=== PATIENT | female | born 1995 | race Two or more races ===

== ENCOUNTER 2016-08-10 12:26 | Emergency (ER) | payer OTHER ==
[2016-08-10 12:31] VITALS: PULSE 80; TEMP 98; BMI 39.8
--- NOTE | 2016-08-10 13:31 | PDOC ---
History of Present Illness - General Chief Complaint: Vaginal Bleeding Stated Complaint: DISCHARGE (8 WEEKS) Time Seen by Provider: 08/10/16 13:01 History Source: Patient Exam Limitations: No Limitations - History of Present Illness Travel History: No Initial Comments: 08/10/16 13:28 21-year-old female presents to the ED with complaints of spotting pinkish white discharge upon wiping after urinating this morning. Patient denies continual vaginal discharge, lower abdominal cramping but does state lower back pain since yesterday without rectal pressure. Patient states is currently 8 weeks and had a miscarriage in March 2015 at 7 weeks gestation. Patient is followed by Dr. guadalupe and is scheduled for her first ultrasound next week. Timing/Duration: reports: resolved prior to arrival Pain Radiation: reports: back Aggravating Factors: improves with: Voiding Alleviating Factors: improves with: None Past History - Travel Traveled outside of the country in the last 30 days: No Close contact w/someone who was outside of country & ill: No - Past Medical History Allergies/Adverse Reactions: Allergies Allergy/AdvReac Type Severity Reaction Status Date / Time Penicillins Allergy Intermediate Rash Verified 08/10/16 12:31 Home Medications: Ambulatory Orders Albuterol Sulfate Inhaler - [Ventolin Hfa Inhaler -] 1 - 2 inh PO QID 10/21/15 Tramadol HCl [Ultram] 50 mg PO BID PRN #10 tablet MDD 2 10/21/15 Cyclobenzaprine HCl [Flexeril -] 10 mg PO TID PRN #21 tablet 10/28/15 Naproxen [Naprosyn -] 500 mg PO BID PRN #10 tablet 10/28/15 Anemia: No Asthma: Yes Suicide Attempt (Hx): No - Reproductive History (#): 1 Para: 0 Cervical CA: No Dysfunctional Uterine Bleeding: No Ectopic : No Endometrial CA: No Polycystic Ovaries: No Therapeutic (s) & number: No Tubal Ligation: No Spontaneous : 0 - Immunization History Immunization Up to Date: Yes - Psycho/Social/Smoking Cessation Hx Anxiety: No Suicidal Ideation: No Smoking Status: No Smoking History: Never smoked Have you smoked in the past 12 months: No Number of Cigarettes Smoked Daily: 0 Cigars Per Day: 0 Hx Alcohol Use: No Drug/Substance Use Hx: No Substance Use Type: None Patient Lives Alone: No Lives with/in: parents Abd/GI Specific PMHX - Complaint Specific PMHX GERD: Yes Review of Systems - Review of Systems Able to Perform ROS?: No Is the patient limited Lao proficient: No Constitutional: No: Symptoms Reported HEENTM: No: Symptoms Reported Respiratory: No: Symptoms reported Cardiac (ROS): No: Symptoms Reported : Yes: Discharge (vaginal spotting) Musculoskeletal: Yes: Back Pain (low bilateral) Integumentary: No: Symptoms Reported Neurological: No: Symptoms reported *Physical Exam - Vital Signs Last Vital Signs Temp Pulse Resp BP Pulse Ox 98.0 F 80 18 116/62 99 08/10/16 12:28 08/10/16 12:28 08/10/16 12:28 08/10/16 12:28 08/10/16 12:28 - Physical Exam General Appearance: Yes: Nourished, Appropriately Dressed. No: Apparent Distress HEENT: negative: Pale Conjunctivae Neck: positive: Normal Thyroid Respiratory/Chest: positive: Lungs Clear, Normal Breath Sounds. negative: Respiratory Distress, Accessory Muscle Use Cardiovascular: positive: Regular Rhythm, Regular Rate. negative: Murmur Female Pelvic Exam: positive: normal external exam, cervical os closed, normal adnexa. negative: CMT, vaginal bleeding (creamy white discharge) Gastrointestinal/Abdominal: positive: Soft. negative: Tenderness Musculoskeletal: negative: CVA Tenderness Extremity: negative: Pedal Edema Integumentary: positive: Normal Color, Warm, Moist Neurologic: positive: Motor Strength 5/5 (ambulatory) ED Treatment Course - LABORATORY CBC & Chemistry Diagram: 08/10/16 13:40 08/10/16 13:40 - RADIOLOGY Radiology Studies Ordered: Category Date Time Status <14WKS US [US] Stat Ultrasound 08/10/16 13:12 Ordered Medical Decision Making - Medical Decision Making 08/10/16 13:41 08/10/16 13:44 Patient complains of episodic vaginal spotting this morning after urinating. Patient denies abdominal pain and states decided come to the ER since she miscarried in March 2015 . Patient only complaint is low back pain which he describes an aching sensation since yesterday. Patient on exam had closed cervical os with no vaginal bleeding. Patient ordered for labs including type and screen, urinalysis, beta count CBC, comp and ultrasound. 06/21/17 15:18 Laboratory Tests 08/10/16 08/10/16 08/10/16 13:40 13:40 13:50 WBC 9.8 Hgb 13.8 Hct 39.9 Plt Count 262 Neutrophils % 70.1 Sodium 139 Potassium 4.3 Chloride 103 Carbon Dioxide 29 Anion Gap 7 L Creatinine 0.5 L Random Glucose 87 Calcium 9.2 AST 9 L ALT 18 Beta HCG, Quant 1669.2 Urine Protein Trace H Urine Blood 2+ H Ur Epithelial Cells 30 08/10/16 15:36 Patient's ultrasound shows a gestational sac with no pole measuring 5 weeks 1 day. There is no pole is in a fight. There for the viability of this gestation is uncertain. Otherwise he has no evidence of adnexal masses or free fluid collections. Patient can follow up with Dr. Hyde as scheduled next week. *DC/Admit/Observation/Transfer Diagnosis at time of Disposition: Threatened in first trimester - Discharge Dispostion Disposition: HOME Condition at time of disposition: Good - Referrals Referrals: Sanchez Irizarry [Primary Care Provider] - Oscar Hyde MD [Staff Physician] - - Patient Instructions Printed Discharge Instructions: DI for Threatened Additional Instructions: Please follow up with Dr. Hyde on Monday for Ultrasound and return to ED if symptoms worsen.
[2016-08-10 13:58] LABS: BASOPHIL 0.4 % (0-2.0); MCH 30.9 pg (25.7-33.7); MCHC 34.6 g/dl (32.0-36.0); MEAN CELL VOLUME 89.4 fl (80-96); MEAN PLT VOLUME 8.5 fl (7.5-11.1); NEUTROPHILS 70.1 % (42.8-82.8); PLATELET COUNT 262 K/MM3 (134-434); WHITE BLOOD COUNT 9.8 K/mm3 (4.0-10.0)
[2016-08-10 14:15] LABS: PH,URINE >= 9.0 (5.0-8.0); URINE APPEARANCE SL CLOUDY; URINE BILIRUBIN NEGATIVE (NEGATIVE); URINE COLOR YELLOW; URINE GLUCOSE (UA) NEGATIVE (NEGATIVE); URINE KETONE NEGATIVE (NEGATIVE); URINE LEUK ESTERASE NEGATIVE (NEGATIVE); URINE NITRITE NEGATIVE (NEGATIVE); URINE PROTEIN TRACE (NEGATIVE); URINE UROBILINOGEN 1.0 E.U/dl E.U./dl (0.2-1.0)
[2016-08-10 14:21] LABS: ALBUMIN 3.9 g/dl (3.4-5.0); ANION GAP 7 (8-16); CALCIUM 9.2 mg/dL (8.5-10.1); CO2 29 mmol/L (21-32); GLUCOSE,RANDOM 87 mg/dL (74-106); SGOT/AST 9 U/L (15-37); SGPT/ALT 18 U/L (12-78)
[2016-08-10 14:24] LABS: URINE BLOOD 2+ (NEGATIVE)
[2016-08-10 14:39] LABS: ALK PHOS 85 U/L (45-117); BILIRUBIN,TOTAL 0.5 mg/dL (0.2-1.0); CREATININE 0.5 mg/dL (0.55-1.02); TOT PROT 7.2 g/dl (6.4-8.2)
[2016-08-10 14:52] LABS: URINE WBC 4 /hpf (3-5)
--- NOTE | 2016-08-10 15:40 | PDOC ---
*Physical Exam - Vital Signs Last Vital Signs Temp Pulse Resp BP Pulse Ox 98.0 F 80 18 116/62 99 08/10/16 12:28 08/10/16 12:28 08/10/16 12:28 08/10/16 12:28 08/10/16 12:28 - Physical Exam General Appearance: Yes: Nourished, Appropriately Dressed Neck: positive: Trachea midline Respiratory/Chest: positive: Lungs Clear, Normal Breath Sounds Cardiovascular: positive: Regular Rhythm, Regular Rate, S1, S2. negative: Edema , JVD Musculoskeletal: positive: Normal Inspection. negative: CVA Tenderness Extremity: positive: Normal Capillary Refill, Normal Inspection Integumentary: positive: Normal Color, Dry, Warm ED Treatment Course - LABORATORY CBC & Chemistry Diagram: 08/10/16 13:40 08/10/16 13:40 - ADDITIONAL ORDERS Additional order review: Laboratory Results 08/10/16 08/10/16 08/10/16 13:50 13:50 13:40 Sodium 139 Potassium 4.3 Chloride 103 Carbon Dioxide 29 Anion Gap 7 L BUN 9 D Creatinine 0.5 L Creat Clearance w eGFR > 60 Random Glucose 87 Calcium 9.2 Total Bilirubin 0.5 D AST 9 L ALT 18 Alkaline Phosphatase 85 Total Protein 7.2 Albumin 3.9 Beta HCG, Quant 1669.2 Urine Color Yellow Urine Appearance Sl cloudy Urine pH >= 9.0 H D Urine Protein Trace H Urine Glucose (UA) Negative Urine Ketones Negative Urine Blood 2+ H Urine Nitrite Negative Urine Bilirubin Negative Urine Urobilinogen 1.0 e.u/dl Ur Leukocyte Esterase Negative Urine WBC 4 Ur Epithelial Cells 30 Amorphous Phosphates Many Blood Type A POSITIVE Antibody Screen Negative 08/10/16 13:40 RBC 4.47 MCV 89.4 MCHC 34.6 RDW 13.0 MPV 8.5 Neutrophils % 70.1 Lymphocytes % 22.2 Monocytes % 6.3 Eosinophils % 1.0 Basophils % 0.4 - RADIOLOGY Radiology Studies Ordered: 08/10/16 15:40 tvus with yolk sac, gestational sac, no pole. Medical Decision Making - Medical Decision Making 08/10/16 15:38 21 yo F with currently 8 weeks here wtih c/o vaginal spotting. mild abd cramping. no mod factors. no f/c no urinary complaints. on exam awake alert lungs clear no wheeze no crackle. heart RRR no mr/g. pelvic exam per pravin Ortega plan; differential r/o ectopic vs. incmplete vs. threatneed ab. pt seen and examined. agree with plan and assessment by Pravin Ortega. followup outpt ob. *DC/Admit/Observation/Transfer Diagnosis at time of Disposition: Threatened in first trimester - Referrals Referrals: Oscar Hyde MD [Staff Physician] - Sanchez Irizarry [Primary Care Provider] - - Patient Instructions Printed Discharge Instructions: DI for Threatened Additional Instructions: Please follow up with Dr. Hyde on Monday for Ultrasound and return to ED if symptoms worsen.
[2016-08-10 15:41] VITALS: BP 117/72
== END 2016-08-10 15:40 | disposition home or self-care (01) ==
LOC: JER 12:26
DX: O20.0 Threatened abortion (principal); Z3A.01 Less than 8 weeks gestation of pregnancy
CPT/HCPCS: 36415; 76801-TC; 80053; 81003; 81015; 84702; 85025; 86850; 86900; 86901; 87086; 99283-25

== ENCOUNTER 2016-08-11 17:36 | Emergency (ER) | payer OTHER ==
[2016-08-11 17:52] VITALS: BMI 39.8
--- NOTE | 2016-08-11 20:32 | PDOC ---
History of Present Illness - History of Present Illness Initial Comments: 08/12/16 00:13 Patient is a 21 year old female (5 weeks) with significant medical hx of asthma who is returning to the ED with lower back pain, pelvic pain and vaginal bleeding for two days. Patient was seen in the ED yesterday for pink discharge and lower back pain. She received an US which demonstrated gestational sac with no pole measuring 5 weeks 1 day; US also reported gestational viability was uncertain at the time. Patient returned today because she developed heavier vaginal bleeding, with passing clots, and new onset of pelvic pain. Patient has had a miscarriage in the past in March 2015 and she returns today with concern of miscarriage. Patient also notes shes been vomiting for the past month with her . Patient has been compliant with vitamins. OR ASSISTANT: Oscar Hyde MD G2/M1 <Sherrie Monique - Last Filed: 08/12/16 01:05> <Anup Nelson - Last Filed: 08/15/16 07:50> - General Chief Complaint: Vaginal Bleeding Stated Complaint: VAGINAL BLEEDING Time Seen by Provider: 08/11/16 18:21 Past History <Sherrie Monique - Last Filed: 08/12/16 01:05> - Past Medical History Anemia: No Asthma: Yes Suicide Attempt (Hx): No - Reproductive History Is Patient Now?: Yes (#): 2 Para: 0 Cervical CA: No Dysfunctional Uterine Bleeding: No Ectopic : No Endometrial CA: No Polycystic Ovaries: No Therapeutic (s) & number: No Tubal Ligation: No Spontaneous : 1 - Immunization History Immunization Up to Date: Yes - Psycho/Social/Smoking Cessation Hx Anxiety: No Suicidal Ideation: No Smoking Status: No Smoking History: Never smoked Have you smoked in the past 12 months: No Number of Cigarettes Smoked Daily: 0 Cigars Per Day: 0 Information on smoking cessation initiated: No Hx Alcohol Use: No Drug/Substance Use Hx: No Substance Use Type: None <Anup Nelson - Last Filed: 08/15/16 07:50> - Past Medical History Allergies/Adverse Reactions: Allergies Allergy/AdvReac Type Severity Reaction Status Date / Time Penicillins Allergy Intermediate Rash Verified 08/11/16 17:48 Home Medications: Ambulatory Orders Albuterol Sulfate Inhaler - [Ventolin Hfa Inhaler -] 1 - 2 inh PO QID 10/21/15 Tramadol HCl [Ultram] 50 mg PO BID PRN #10 tablet MDD 2 10/21/15 Cyclobenzaprine HCl [Flexeril -] 10 mg PO TID PRN #21 tablet 10/28/15 Naproxen [Naprosyn -] 500 mg PO BID PRN #10 tablet 10/28/15 Abd/GI Specific PMHX - Complaint Specific PMHX GERD: Yes <Anup Nelson - Last Filed: 08/15/16 07:50> Review of Systems - Review of Systems Comments:: 08/12/16 00:14 CONSTITUTIONAL: No reported: Fever, Chills, Diaphoresis, Generalized Weakness, Malaise, Loss of Appetite HEENT: No reported: Rhinorrhea, Nasal Congestion, Throat Pain, Throat Swelling, Difficulty Swallowing, Mouth Swelling, Ear Pain, Eye Pain, Visual Changes CARDIOVASCULAR: No reported: Chest Pain, Syncope, Palpitations, Irregular Heart Rate, Lightheadedness, Peripheral Edema RESPIRATORY: No reported: Cough, Shortness of Breath, SOB with Exertion, Orthopnea, Wheezing , Stridor, Hemoptysis GASTROINTESTINAL: Present: Pelvic Pain No reported: Abdominal Distension, Nausea, Vomiting, Diarrhea, Constipation, Melena, Hematochezia GENITOURINARY: Present: Vaginal Bleeding No reported: Dysuria, Frequency, Urgency, Hesitancy, Flank Pain, Genital Pain MUSCULOSKELETAL: Present: Lower Back Pain No reported: Myalgia, Arthralgia, Joint Swelling, Neck Pain SKIN: No reported: Rash, Itching, Pallor HEMEATOLOGIC/IMMUNOLOGIC: No reported: Easy Bleeding, Easy Bruising, Lymphadenopathy, Frequent infections ENDOCRINE: No reported: Unexplained Weight Gain, Unexplained Weight Loss, Heat Intolerance , Cold Intolerance NEUROLOGIC: No reported: Headache, Focal Weakness, Paresthesias, Vertigo, Lightheadedness, Unsteady Gait, Seizure, Mental Status Changes, Incontinence PSYCHIATRIC: No reported: Anxiety, Depression <Sherrie Monique - Last Filed: 08/12/16 01:05> *Physical Exam - Vital Signs Last Vital Signs Temp Pulse Resp BP Pulse Ox 98.7 F 66 20 118/79 100 08/11/16 17:49 08/11/16 17:49 08/11/16 17:49 08/11/16 17:49 08/11/16 17:49 - Physical Exam Comments: 08/12/16 00:14 GENERAL: The patient is awake, alert, and fully oriented, Nontoxic - in no acute distress. HEAD: Normocephalic, atraumatic. EYES: extraocular movements intact, sclera anicteric, conjunctiva clear. ENT: Normal voice, Moist mucous membranes. NECK: Normal range of motion, supple LUNGS: Breath sounds equal, clear to auscultation bilaterally. No wheezes, no rhonchi, no rales. HEART: Regular rate and rhythm, normal S1 and S2 without murmur, rub or gallop. ABDOMEN: Soft, mild suprapubic tenderness normoactive bowel sounds. No guarding , no rebound. No CVA tenderness, Pinion Staker: blood in vag vault and several clots/tissue extracted from cervix EXTREMITIES: Normal range of motion, no edema. No clubbing or cyanosis. No cords, erythema, or tenderness. NEUROLOGICAL: No facial assymetry, Normal speech, PSYCH: Normal mood, normal affect. SKIN: Warm, Dry, normal turgor <Sherrie Monique - Last Filed: 08/12/16 01:05> - Vital Signs Last Vital Signs Temp Pulse Resp BP Pulse Ox 98.7 F 66 20 118/79 100 08/11/16 17:49 08/11/16 17:49 08/11/16 17:49 08/11/16 17:49 08/11/16 17:49 <Anup Nelson - Last Filed: 08/15/16 07:50> ED Treatment Course - LABORATORY CBC & Chemistry Diagram: 08/12/16 00:35 - ADDITIONAL ORDERS Additional order review: Laboratory Results 08/11/16 18:18 Beta HCG, Quant 1914.4 - RADIOLOGY Radiograph Interpretation: 08/12/16 01:05 Transvaginal US Impression: Findings consistent with an incomplete . Reported By: Chip Bower MD <Sherrie Monique - Last Filed: 08/12/16 01:05> - LABORATORY CBC & Chemistry Diagram: 08/12/16 00:35 - ADDITIONAL ORDERS Additional order review: Laboratory Results 08/11/16 18:18 Beta HCG, Quant 1914.4 <Anup Nelson - Last Filed: 08/15/16 07:50> Medical Decision Making - Medical Decision Making 08/11/16 20:44 21y F presenting with complaint of worsening vag bleeding and suprapubic pain radiating to back. on exam pt passed a large clot/tissue mass from her cervix. ?completed ab. beta trending higher. will obtain pelvic US A portion of this note was documented by scribe services under my direction. I have reviewed the details of the note, within reason, and agree with the documentation with the following case summary and management plan written by me 08/11/16 23:41 US c/w incomplete AB with gestational sac in cervic case d/w dr. Basurto requetsed 20u pitocin in 1000cc of LR at 200cc/hr untli she passes 08/12/16 01:41 pt comfortable on pit gtt pt signed out to dr. Gupta to fu with pt and dispo the pt will continue monitoring the pt pt still having mild bleeding and passing some clots <Anup Nelson - Last Filed: 08/15/16 07:50> *DC/Admit/Observation/Transfer - Attestations Scribe Attestion: 08/12/16 00:15 Documentation prepared by Sherrie Monique, acting as medical detail representative for Anup Nelson MD. <Sherrie Monique - Last Filed: 08/12/16 01:05> <Anup Nelson - Last Filed: 08/15/16 07:50> Diagnosis at time of Disposition: Inevitable - Discharge Dispostion Disposition: HOME Condition at time of disposition: Stable - Referrals Referrals: Oscar Hyde MD [Staff Physician] - Sanchez Irizarry [Primary Care Provider] - - Patient Instructions Printed Discharge Instructions: DI for Miscarriage Additional Instructions: Ms. Antony Thank you for coming in to the ER today Please monitor yourself for heavy vaginal bleeding If you are saturating 2 pads/hour x 2 hours, chest pain, weakness, shortness of breath please return to the ER to see us Please follow up with Dr. Hyde on Tuesday 08/15
[2016-08-11] MEDS ORDERED: morphine CARPU-JECT 2 MG/1 ML DISP.SYRIN IVPUSH ONE (23:41)
[2016-08-11] MEDS ORDERED: OXYTOCIN IV SCH (23:45)
[2016-08-11] MEDS ORDERED: LACTATED RINGERS IV SCH (23:45)
[2016-08-12] MEDS ORDERED: morphine CARPU-JECT 2 MG/1 ML DISP.SYRIN ONE (00:06)
[2016-08-12] MEDS ORDERED: OXYTOCIN 10 UNITS/ML VIAL ONE (00:07)
[2016-08-12 00:41] LABS: BASOPHIL 0.2 % (0-2.0); EOSINOPHIL 0.7 % (0-4.5); MCHC 33.6 g/dl (32.0-36.0); MEAN CELL VOLUME 89.2 fl (80-96); MEAN PLT VOLUME 8.7 fl (7.5-11.1); NEUTROPHILS 73.9 % (42.8-82.8); PLATELET COUNT 260 K/MM3 (134-434); RDW 12.9 % (11.6-15.6); WHITE BLOOD COUNT 13.6 K/mm3 (4.0-10.0)
--- NOTE | 2016-08-12 10:12 | PDOC ---
*Physical Exam - Vital Signs Last Vital Signs Temp Pulse Resp BP Pulse Ox 98.7 F 76 16 107/64 98 08/11/16 17:49 08/12/16 07:54 08/12/16 07:54 08/12/16 07:54 08/12/16 07:54 ED Treatment Course - LABORATORY CBC & Chemistry Diagram: 08/12/16 00:35 - ADDITIONAL ORDERS Additional order review: Laboratory Results 08/12/16 00:35 WBC 13.6 H D RBC 4.44 Hgb 13.3 Hct 39.6 MCV 89.2 MCHC 33.6 RDW 12.9 Plt Count 260 MPV 8.7 Neutrophils % 73.9 Lymphocytes % 19.4 Monocytes % 5.8 Eosinophils % 0.7 Basophils % 0.2 08/12/16 00:35 RBC 4.44 MCV 89.2 MCHC 33.6 RDW 12.9 MPV 8.7 Neutrophils % 73.9 Lymphocytes % 19.4 Monocytes % 5.8 Eosinophils % 0.7 Basophils % 0.2 - Medications Given in the ED: ED Medications Discontinued Medications Generic Name Dose Route Start Last Admin Trade Name Elena PRN Reason Stop Dose Admin Morphine Sulfate 2 mg 08/11/16 23:41 08/12/16 00:35 Morphine Injection - IVPUSH 08/11/16 23:42 2 mg ONCE ONE Administration Medical Decision Making - Medical Decision Making 08/12/16 10:06 I received this patient on sign out from Dr. Salgado This is a 21 yo F who presents to the ER with a complaint of vaginal bleeding Initial US: gestational Sac at endocervical canal given pitocin overnight Pt sent to US 08/12/16 10:06 Laboratory Tests 08/10/16 08/11/16 13:40 18:18 Beta HCG, Quant 1669.2 1914.4 U/S gestational sac at the lower uterine segment and in the upper endocervical merary Case reviewed with Dr. Hyde He states pt can either have D&C or attempt to pass it on her own Pt has decided to go home She will follow up on Tuesday 08/15 Clinical impression: Inevitable ab *DC/Admit/Observation/Transfer Diagnosis at time of Disposition: Inevitable - Discharge Dispostion Disposition: HOME Condition at time of disposition: Stable Admit: No - Referrals Referrals: Sanchez Irizarry [Primary Care Provider] - Oscar Hyde MD [Staff Physician] - - Patient Instructions Printed Discharge Instructions: DI for Miscarriage Additional Instructions: Deann Cassia Thank you for coming in to the ER today Please monitor yourself for heavy vaginal bleeding If you are saturating 2 pads/hour x 2 hours, chest pain, weakness, shortness of breath please return to the ER to see us Please follow up with Dr. Hyde on Tuesday 08/15 - Post Discharge Activity
[2016-08-12 10:33] VITALS: BP 110/70; PULSE 70; TEMP 98.5
--- NOTE | 2016-08-15 14:22 | PATH ---
Surgical Pathology Report Patient Name: USAMA ANDERSON [facility]. Rec. #: [id number] /Age/Gender: 1995 (Age: 21) / F Account: [id number] Location: EMERGENCY ROOM Taken: 08/11/2016 Received: 08/12/2016 Reported: 08/15/2016 Physicians: Rony Arguello M.D. Specimen(s) Received A: PRODUCTS OF CONCEPTION B: PRODUCTS OF CONCEPTION Clinical History at approximately 5 weeks, vaginal bleeding ? Blood clot versus products of conception Spontaneous Final Diagnosis A AND B. UTERINE CONTENTS, EVACUATION: CLOTTED BLOOD WITH RARE TROPHOBLAST CONSISTENT WITH PRODUCTS OF CONCEPTION. BENIGN ENDOMETRIAL TISSUE AND SQUAMOUS EPITHELIUM PRESENT. Comment: Recommend correlation with clinical and radiologic findings and follow up as clinically indicated. Electronically Signed Otis Leo M.D. Gross Description A. Received in formalin, labeled with the patient's name and indicated on the requisition to be products of conception, is a 9.0 x 5.5 x 0.7 cm aggregate of red-brown blood clot. No definite villous tissue or somatic tissue is identified. Engine Turner sections are submitted in 3 cassettes. B. Received in formalin, labeled with the patient's name and indicated on the requisition to be products of conception, is a 10.5 x 10.0 x 1.4 cm aggregate of red-brown blood clot. No definite villous tissue or somatic tissue is identified. Engine Turner sections are submitted in 3 cassettes. /08/12/201608/12/2016
== END 2016-08-12 10:33 | disposition home or self-care (01) ==
LOC: JER 17:36
PROC: 3E033GC Introduction of Other Therapeutic Substance into Peripheral Vein, Percutaneous Approach (ICD-10-PCS; principal; 2016-08-11)
PROC: 3E033NZ Introduction of Analgesics, Hypnotics, Sedatives into Peripheral Vein, Percutaneous Approach (ICD-10-PCS; 2016-08-11)
DX: O26.891 Other specified pregnancy related conditions, first trimester (principal); Z3A.01 Less than 8 weeks gestation of pregnancy; O03.9 Complete or unspecified spontaneous abortion without complication; J45.909 Unspecified asthma, uncomplicated
CPT/HCPCS: 36415; 76817-TC; 84702; 85025; 88305-TC; 99282-25

== ENCOUNTER 2016-10-09 13:07 | Emergency (ER) | payer OTHER ==
[2016-10-09 13:14] VITALS: BP 105/55; PULSE 70; TEMP 98.2; BMI 38.9
--- NOTE | 2016-10-09 14:09 | PDOC ---
History of Present Illness - General Chief Complaint: Vaginal Sxs Stated Complaint: VAGINAL PAIN Time Seen by Provider: 10/09/16 13:49 History Source: Patient Exam Limitations: No Limitations - History of Present Illness Travel History: No Initial Comments: 10/09/16 14:09 21-year-old female presents to the ED with complaints of vaginal discharge and vaginal itching since last night. Patient states is also 16 weeks but has no urinary complaints abdominal pain, fever, vaginal bleeding, or dysphonia. Patient states is followed by Dr. Hyde and has her ultrasound next week. Timing/Duration: reports: constant Aggravating Factors: worse with: None Alleviating Factors: worse with: None Past History - Travel Traveled outside of the country in the last 30 days: No Close contact w/someone who was outside of country & ill: No - Past Medical History Allergies/Adverse Reactions: Allergies Allergy/AdvReac Type Severity Reaction Status Date / Time Penicillins Allergy Intermediate Rash Verified 10/09/16 13:10 Home Medications: Ambulatory Orders NK [No Known Home Medication] 10/09/16 Anemia: No Asthma: Yes Suicide Attempt (Hx): No - Reproductive History (#): 1 Para: 0 Cervical CA: No Dysfunctional Uterine Bleeding: No Ectopic : No Endometrial CA: No Polycystic Ovaries: No Therapeutic (s) & number: No Tubal Ligation: No Spontaneous : 0 - Immunization History Immunization Up to Date: Yes - Psycho/Social/Smoking Cessation Hx Anxiety: No Suicidal Ideation: No Smoking Status: No Smoking History: Never smoked Have you smoked in the past 12 months: No Number of Cigarettes Smoked Daily: 0 Cigars Per Day: 0 Information on smoking cessation initiated: No Hx Alcohol Use: No Drug/Substance Use Hx: Yes (chika) Substance Use Type: Marijuana Patient Lives Alone: No Lives with/in: parents Abd/GI Specific PMHX - Complaint Specific PMHX GERD: Yes Review of Systems - Review of Systems Able to Perform ROS?: Yes Constitutional: No: Symptoms Reported HEENTM: No: Symptoms Reported ABD/GI: No: Symptoms Reported : Yes: Discharge Musculoskeletal: No: Symptoms Reported Integumentary: Yes: Pruritus (labia) Neurological: No: Symptoms reported Endocrine: No: Symptoms Reported Hematologic/Lymphatic: No: Symptoms Reported *Physical Exam - Vital Signs Last Vital Signs Temp Pulse Resp BP Pulse Ox 98.2 F 70 18 105/55 100 10/09/16 13:11 10/09/16 13:11 10/09/16 13:11 10/09/16 13:11 10/09/16 13:11 - Physical Exam General Appearance: Yes: Nourished, Appropriately Dressed. No: Apparent Distress Female Pelvic Exam: positive: normal external exam, cervical os closed, discharge (white nonodorous curd-like discharge in vault and around os.). negative: CMT, vaginal bleeding Gastrointestinal/Abdominal: positive: Soft. negative: Tenderness Musculoskeletal: negative: CVA Tenderness Extremity: positive: Normal Capillary Refill Integumentary: positive: Normal Color, Warm, Moist Neurologic: positive: Motor Strength 5/5 (ambulatory) Medical Decision Making - Medical Decision Making 10/09/16 14:15 Patient currently 16 weeks complaining of vaginal discharge and itching. Patient on exam with noted shaina. Patient also ordered for urinalysis , urine culture, and gonorrhea chlamydia. 10/09/16 14:27 Laboratory Tests 10/09/16 14:01 Urine Ketones Negative Urine Nitrite Negative Ur Leukocyte Esterase 3+ H Urine WBC 15 Patient will be discharged home with Keflex and Monistat. *DC/Admit/Observation/Transfer Diagnosis at time of Disposition: Shaina vaginitis Urinary tract infection Qualifiers: Hematuria presence: with hematuria - Discharge Dispostion Disposition: HOME Condition at time of disposition: Good - Referrals Referrals: Sanchez Irizarry [Primary Care Provider] - - Patient Instructions Printed Discharge Instructions: DI for Urinary Tract Infection (UTI), DI for Vaginal Yeast Infection Additional Instructions: Please take medication as prescribed. Drink plenty of fluids and please clean from front to back. Please follow up with Dr. Hyde as scheduled and let him know of today's visit. - Post Discharge Activity
[2016-10-09 14:11] LABS: URINE APPEARANCE SLCLOUDY; URINE BILIRUBIN NEGATIVE (NEGATIVE); URINE BLOOD NEGATIVE (NEGATIVE); URINE COLOR YELLOW; URINE GLUCOSE (UA) NEGATIVE (NEGATIVE); URINE KETONE NEGATIVE (NEGATIVE); URINE NITRITE NEGATIVE (NEGATIVE); URINE PROTEIN NEGATIVE (NEGATIVE); URINE UROBILINOGEN NEGATIVE mg/dL (0.2-1.0)
[2016-10-09 14:15] LABS: URINE LEUK ESTERASE 3+ (NEGATIVE)
[2016-10-09 14:16] LABS: URINE BACTERIA RARE /hpf (NONE SEEN); URINE MUCUS RARE; URINE RBC 13 /hpf (0-3); URINE WBC 15 /hpf (3-5)
== END 2016-10-09 14:36 | disposition home or self-care (01) ==
LOC: JERFT 13:07
DX: O98.812 Other maternal infectious and parasitic diseases complicating pregnancy, second trimester (principal); B37.3 Candidiasis of vulva and vagina; Z3A.16 16 weeks gestation of pregnancy
CPT/HCPCS: 36415; 81003; 81015; 87086; 87491; 87591; 99281-25

== ENCOUNTER 2016-10-17 11:12 | Emergency (ER) | payer OTHER ==
[2016-10-17 11:16] VITALS: TEMP 97.9; BMI 39.4
--- NOTE | 2016-10-17 11:31 | PDOC ---
History of Present Illness - General Chief Complaint: Pain, Acute Stated Complaint: VAGINAL PAIN Time Seen by Provider: 10/17/16 11:31 - History of Present Illness Initial Comments: 10/17/16 12:28 Ms. Antony is a 21 year old female with a significant past medical history of 2 spontaneous abortions and recent visit for vaginal candidiasis who presents to the emergency department with a 2 day history of suprapubic pain she says feels similar to her previous pain with . She also reports pain to her R flank. She presented last week with UTI symptoms for which she was proscribed keflex but stopped taking it after 2 days per her PCP when culture grew out negative. Says she thinks she is 6-8 weeks . The patient denies chest pain, shortness of breath, headache and dizziness. Denies fever, chills, nausea, vomit, diarrhea and constipation. Denies dysuria, frequency, urgency and hematuria. Allergies: Penicillins Past surgical history: None Social history: Occasional marijuana use OBGYN: Rachel Past History - Past Medical History Allergies/Adverse Reactions: Allergies Allergy/AdvReac Type Severity Reaction Status Date / Time Penicillins Allergy Intermediate Rash Verified 10/17/16 11:16 Home Medications: Ambulatory Orders Albuterol Sulfate Inhaler - [Ventolin Hfa Inhaler -] 1 - 2 inh PO QID 10/17/16 Anemia: No Asthma: Yes Suicide Attempt (Hx): No - Reproductive History (#): 1 Para: 0 Cervical CA: No Dysfunctional Uterine Bleeding: No Ectopic : No Endometrial CA: No Polycystic Ovaries: No Therapeutic (s) & number: No Tubal Ligation: No Spontaneous : 0 - Immunization History Immunization Up to Date: Yes - Psycho/Social/Smoking Cessation Hx Anxiety: No Suicidal Ideation: No Smoking Status: No Smoking History: Never smoked Have you smoked in the past 12 months: No Number of Cigarettes Smoked Daily: 0 Cigars Per Day: 0 Information on smoking cessation initiated: No Hx Alcohol Use: No Drug/Substance Use Hx: Yes (chika) Substance Use Type: Marijuana Review of Systems - Review of Systems Comments:: 10/17/16 12:28 GENERAL/CONSTITUTIONAL: No fever or chills. No weakness. HEAD, EYES, EARS, NOSE AND THROAT: No change in vision. No ear pain or discharge. No sore throat. CARDIOVASCULAR: No chest pain or shortness of breath RESPIRATORY: No cough, wheezing, or hemoptysis. GASTROINTESTINAL: No nausea, vomiting, diarrhea or constipation. GENITOURINARY: +some R flank pain as well as suprapubic pain for 2 days. No dysuria, frequency, or change in urination. MUSCULOSKELETAL: No joint or muscle swelling or pain. No neck or back pain. SKIN: No rash NEUROLOGIC: No headache, vertigo, loss of consciousness, or change in strength/ sensation. ENDOCRINE: No increased thirst. No abnormal weight change HEMATOLOGIC/LYMPHATIC: No anemia, easy bleeding, or history of blood clots. ALLERGIC/IMMUNOLOGIC: No hives or skin allergy. *Physical Exam - Vital Signs Last Vital Signs Temp Pulse Resp BP Pulse Ox 97.9 F 89 18 130/55 100 10/17/16 11:13 10/17/16 11:13 10/17/16 11:13 10/17/16 11:13 10/17/16 11:13 - Physical Exam Comments: 10/17/16 12:28 GENERAL: Awake, alert, and fully oriented, in no acute distress HEAD: No signs of trauma, normocephalic, atraumatic EYES: PERRLA, EOMI, sclera anicteric, conjunctiva clear ENT: Auricles normal inspection, hearing grossly normal, nares patent, oropharynx clear without exudates. Moist mucosa NECK: Normal ROM, supple, no lymphadenopathy, JVD, or masses LUNGS: No distress, speaks full sentences, clear to auscultation bilaterally HEART: Regular rate and rhythm, normal S1 and S2, no murmurs, rubs or gallops, peripheral pulses normal and equal bilaterally. ABDOMEN: +Lower abdomen tender bilaterally. Soft, normoactive bowel sounds. No guarding, no rebound. No masses EXTREMITIES: Normal inspection, Normal range of motion, no edema. No clubbing or cyanosis. NEUROLOGICAL: Cranial nerves II through XII grossly intact. Normal speech, normal gait, no focal sensorimotor deficits SKIN: Warm, Dry, normal turgor, no rashes or lesions noted. ED Treatment Course - LABORATORY CBC & Chemistry Diagram: 10/17/16 12:24 10/17/16 12:24 Medical Decision Making - Medical Decision Making 10/17/16 15:39 Patient worked up for pelvic pain with reported 6-8 weeks. Beta HCG found to be 543, on reporting level to patient patient reported that it has increased since her value of 83 on Monday. At this point patient remembered that she is only 2 weeks . Transvaginal ultrasound positive for gestational sac-like mass. *DC/Admit/Observation/Transfer Diagnosis at time of Disposition: Abdominal pain Qualifiers: Abdominal location: lower abdomen, unspecified Qualified Code(s): R10.30 - Lower abdominal pain, unspecified - Discharge Dispostion Disposition: HOME - Referrals Referrals: Oscar Hyde MD [Staff Physician] - - Patient Instructions Printed Discharge Instructions: DI for Abdominal Pain -- Early Additional Instructions: You must follow up with your OB within 2-3 days to have your HCG levels rechecked. We cannot definitely confirm that you do not have an ectopic unless you follow up with your OB. If you have an ectopic and fail to have it treated, you may suffer severe pain, infertility, illness, or even . - Attestations Physician Attestion: 10/17/16 12:27 I, Dr. Min Yanez, attest that this document has been prepared under my direction and personally reviewed by me in its entirety. I further attest, that it accurately reflects all work, treatment, procedures and medical decision -making performed by me.
[2016-10-17 12:43] LABS: BASOPHIL 0.7 % (0-2.0); EOSINOPHIL 0.9 % (0-4.5); MCH 30.7 pg (25.7-33.7); MCHC 34.5 g/dl (32.0-36.0); MEAN PLT VOLUME 8.2 fl (7.5-11.1); NEUTROPHILS 68.2 % (42.8-82.8); PLATELET COUNT 289 K/MM3 (134-434); RDW 13.1 % (11.6-15.6); WHITE BLOOD COUNT 9.1 K/mm3 (4.0-10.0)
[2016-10-17 12:45] LABS: URINE APPEARANCE SLCLOUDY; URINE BILIRUBIN NEGATIVE (NEGATIVE); URINE BLOOD NEGATIVE (NEGATIVE); URINE COLOR LTYELLOW; URINE GLUCOSE (UA) NEGATIVE (NEGATIVE); URINE KETONE NEGATIVE (NEGATIVE); URINE NITRITE NEGATIVE (NEGATIVE); URINE PROTEIN NEGATIVE (NEGATIVE); URINE UROBILINOGEN NEGATIVE mg/dL (0.2-1.0)
[2016-10-17 12:59] LABS: URINE LEUK ESTERASE 1+ (NEGATIVE)
[2016-10-17 13:00] LABS: URINE RBC <1 /hpf (0-3); URINE WBC 3 /hpf (3-5)
[2016-10-17 13:01] LABS: URINE MUCUS RARE
[2016-10-17 13:09] LABS: ALBUMIN 3.7 g/dl (3.4-5.0); ANION GAP 7 (8-16); BILIRUBIN,TOTAL 0.4 mg/dL (0.2-1.0); CALCIUM 8.7 mg/dL (8.5-10.1); CO2 27 mmol/L (21-32); CREATININE 0.7 mg/dL (0.55-1.02); GLUCOSE,RANDOM 86 mg/dL (74-106); SGOT/AST 9 U/L (15-37); SGPT/ALT 22 U/L (12-78); TOT PROT 7.2 g/dl (6.4-8.2)
[2016-10-17 13:10] LABS: ALK PHOS 78 U/L (45-117)
--- NOTE | 2016-10-17 13:16 | PDOC ---
Attending Attestation - Resident Resident Name: Min Yanez - ED Attending Attestation I have performed the following: I have examined & evaluated the patient, The case was reviewed & discussed with the resident, I agree w/resident's findings & plan, Exceptions are as noted - HPI HPI: 10/17/16 13:12 21 F @ 7-8 weeks gestation presenting to ER with suprapubic pain. Pt denies F/C. Denies dysuria but does report occasional R flank pain. Denies vaginal discharge or bleeding. Pt states that the pain began yesterday, is constant, nonradiating. Feels similar to the pain she had with her prior miscarriages. - Physicial Exam PE: 10/17/16 13:17 "GENERAL: Awake, alert, and fully oriented, in no acute distress HEAD: No signs of trauma EYES: PERRLA, EOMI, sclera anicteric, conjunctiva clear ENT: Auricles normal inspection, hearing grossly normal, nares patent, oropharynx clear without exudates. Moist mucosa NECK: Normal ROM, supple, no lymphadenopathy, JVD, or masses LUNGS: Breath sounds equal, clear to auscultation bilaterally. No wheezes, and no crackles HEART: Regular rate and rhythm, normal S1 and S2, no murmurs, rubs or gallops ABDOMEN: Mild suprapubic TTP, Soft, normoactive bowel sounds. No guarding, no rebound. No masses, no CVAT EXTREMITIES: Normal range of motion, no edema. No clubbing or cyanosis. No cords, erythema, or tenderness NEUROLOGICAL: Cranial nerves II through XII grossly intact. Normal speech, normal gait SKIN: Warm, Dry, normal turgor, no rashes or lesions noted. " - Medical Decision Making 10/17/16 13:18 21 F @ 7-8 weeks gestation presenting with suprapubic pain. Will r/o ectopic with TVUS. Also consider UTI or spontaneous Ab. - Labs, beta quant - UA - TVUS 10/17/16 15:38 Upon further discussion with pt, pt reveals that she is actually closer to 2 or 3 weeks gestation. Pt states that her serum HCG was 80 last Monday. HCG 500s today, increasing appropriately. TVUS with small yolk sac. Pt to f/u with OB within 2 days. Discharge Disposition - Discharge Dispostion Last Admission D/C Date: 94 - Referrals Referrals: Sanchez Irizarry [Primary Care Provider] - - Patient Instructions Additional Instructions: You must follow up with your OB within 2-3 days to have your HCG levels rechecked. We cannot definitely confirm that you do not have an ectopic unless you follow up with your OB. If you have an ectopic and fail to have it treated, you may suffer severe pain, infertility, illness, or even . - Post Discharge Activity
[2016-10-17 16:15] VITALS: BP 140/75; PULSE 72
== END 2016-10-17 16:16 | disposition home or self-care (01) ==
LOC: JER 11:12
DX: O26.891 Other specified pregnancy related conditions, first trimester (principal); R10.30 Lower abdominal pain, unspecified; Z3A.01 Less than 8 weeks gestation of pregnancy
CPT/HCPCS: 36415; 76817-TC; 80053; 81003; 81015; 84702; 85025; 87077; 87086; 99285-25

== ENCOUNTER 2016-12-15 22:28 | Emergency (ER) | payer OTHER ==
[2016-12-15 22:45] VITALS: BP 107/75; PULSE 98; TEMP 98.4; BMI 39.4
--- NOTE | 2016-12-15 23:51 | PDOC ---
History of Present Illness - General History Source: Patient Exam Limitations: No Limitations - History of Present Illness Initial Comments: 12/16/16 00:17 The patient is a 21 year old female who is 13 weeks with a significant PMH of 2 spontaneous abortions who presents to the emergency department with approximately 2 days of nasal congestion, nausea, and vomiting. The patient reports associated cramping with her nausea. She also endorses a subjective fever but is afebrile upon presentation. The patient denies any vaginal bleeding or discharge. The patient denies chest pain, shortness of breath, headache and dizziness. Denies chills, diarrhea and constipation. Denies dysuria, frequency, urgency and hematuria. Allergies: Penicillins. Past surgical history: None reported. Social history: Marijuana use. No reported alcohol or cigarette use. PCP: Dr. Irizarry DRAFTER ELECTRONIC: Dr. Hyde <Michael Kessler - Last Filed: 12/16/16 01:52> - General History Source: Patient <Tristen Salgado - Last Filed: 12/16/16 02:19> - General Chief Complaint: Nausea/Vomiting Stated Complaint: NAUSEA/VOMITING/13 WKS Time Seen by Provider: 12/15/16 23:49 Past History <Michael Kessler - Last Filed: 12/16/16 01:52> - Past Medical History Anemia: No Asthma: Yes - Reproductive History (#): 1 Para: 0 Cervical CA: No Dysfunctional Uterine Bleeding: No Ectopic : No Endometrial CA: No Polycystic Ovaries: No Therapeutic (s) & number: No Tubal Ligation: No Spontaneous : 0 - Immunization History Immunization Up to Date: Yes - Suicide/Smoking/Psychosocial Hx Smoking Status: No Smoking History: Never smoked Have you smoked in the past 12 months: No Number of Cigarettes Smoked Daily: 0 Cigars Per Day: 0 Information on smoking cessation initiated: No Hx Alcohol Use: No Drug/Substance Use Hx: No Substance Use Type: Marijuana <Tristen Salgado - Last Filed: 12/16/16 02:19> - Past Medical History Allergies/Adverse Reactions: Allergies Allergy/AdvReac Type Severity Reaction Status Date / Time Penicillins Allergy Intermediate Rash Verified 10/17/16 11:16 Home Medications: Ambulatory Orders Metoclopramide HCl [Reglan] 10 mg PO TID #30 tablet 12/16/16 Nitrofurantoin Monohyd/M-Cryst [Macrobid] 100 mg PO BID #14 capsule 12/16/16 Review of Systems - Review of Systems Able to Perform ROS?: Yes Comments:: 12/16/16 00:17 CONSTITUTIONAL: Absent: fever, chills, diaphoresis, generalized weakness, malaise, loss of appetite HEENT: (+) Nasal congestion Absent: rhinorrhea, throat pain, throat swelling, difficulty swallowing, mouth swelling, ear pain, eye pain, visual Changes CARDIOVASCULAR: Absent: chest pain, syncope, palpitations, irregular heart rate, lightheadedness , peripheral edema RESPIRATORY: Absent: cough, shortness of breath, dyspnea with exertion, orthopnea, wheezing, stridor, hemoptysis GASTROINTESTINAL: (+) Nausea. (+) Vomiting. Absent: abdominal pain, abdominal distension, diarrhea, constipation, melena, hematochezia GENITOURINARY: Absent: dysuria, frequency, urgency, hesitancy, hematuria, flank pain, genital pain MUSCULOSKELETAL: Absent: myalgia, arthralgia, joint swelling SKIN: Absent: rash, itching, pallor HEMATOLOGIC/IMMUNOLOGIC: Absent: easy bleeding, easy bruising, lymphadenopathy, frequent infections ENDOCRINE: Absent: unexplained weight gain, unexplained weight loss, heat intolerance, cold intolerance NEUROLOGIC: Absent: headache, focal weakness or paresthesias, dizziness, unsteady gait, seizure, mental status changes, bladder or bowel incontinence PSYCHIATRIC: Absent: anxiety, depression, suicidal or homicidal ideation, hallucinations. <Michael Kessler - Last Filed: 12/16/16 01:52> *Physical Exam - Vital Signs Last Vital Signs Temp Pulse Resp BP Pulse Ox 98.4 F 98 H 19 107/75 99 12/15/16 22:43 12/15/16 22:43 12/15/16 22:43 12/15/16 22:43 12/15/16 22:43 - Physical Exam Comments: 12/16/16 00:17 GENERAL: Well developed, well nourished. Awake and alert. No acute distress. HEENT: (+) Nasal congestion. Normocephalic, atraumatic. PERRLA, EOMI. No conjunctival pallor. Sclera are non- icteric. Moist mucous membranes. Oropharynx is clear. NECK: Supple. Full ROM. No JVD. Carotid pulses 2+ and symmetric, without bruits. No thyromegaly. No lymphadenopathy. CARDIOVASCULAR: Regular rate and rhythm. No murmurs, rubs, or gallops. Distal pulses are 2+ and symmetric. PULMONARY: No evidence of respiratory distress. Lungs clear to auscultation bilaterally. No wheezing, rales or rhonchi. ABDOMINAL:(+) Obese. Soft. Non-tender. Non-distended. No rebound or guarding. No organomegaly. Normoactive bowel sounds. MUSCULOSKELETAL Normal range of motion at all joints. No bony deformities or tenderness. No CVA tenderness. EXTREMITIES: No cyanosis. No clubbing. No edema. No calf tenderness. SKIN: Warm and dry. Normal capillary refill. No rashes. No jaundice. NEUROLOGICAL: Alert, awake, appropriate. Cranial nerves 2-12 intact. No deficits to light touch and temperature in face, upper extremities and lower extremities. No motor deficits in the in face, upper extremities and lower extremities. Normoreflexic in the upper and lower extremities. Normal speech. Toes are downgoing bilaterally. Gait is normal without ataxia. PSYCHIATRIC: Cooperative. Good eye contact. Appropriate mood and affect. <Michael Kessler - Last Filed: 12/16/16 01:52> - Vital Signs Last Vital Signs Temp Pulse Resp BP Pulse Ox 98.4 F 98 H 19 107/75 99 12/15/16 22:43 12/15/16 22:43 12/15/16 22:43 12/15/16 22:43 12/15/16 22:43 <Tristen Salgado - Last Filed: 12/16/16 02:19> ED Treatment Course - LABORATORY CBC & Chemistry Diagram: 12/16/16 00:18 12/16/16 00:18 <Michael Kessler - Last Filed: 12/16/16 01:52> - LABORATORY CBC & Chemistry Diagram: 12/16/16 00:18 12/16/16 00:18 <Tristen Salgado - Last Filed: 12/16/16 02:19> Medical Decision Making - Medical Decision Making 12/16/16 02:17 Dr. Salgado: The scribe's documentation has been prepared under my direction and personally reviewed by me in its entirery. I confirm that the note above accurately reflects all work, treatment, procedures, and medical decision making performed by dc. <Tristen Salgado - Last Filed: 12/16/16 02:19> *DC/Admit/Observation/Transfer - Attestations Scribe Attestion: 12/16/16 00:17 Documentation prepared by Michael Kessler, acting as medical social worker for Tristen Salgado DO. <Michael Kessler - Last Filed: 12/16/16 01:52> - Discharge Dispostion Admit: No <Tristen Salgado - Last Filed: 12/16/16 02:19> Diagnosis at time of Disposition: Hyperemesis gravidarum URI (upper respiratory infection) Qualifiers: URI type: unspecified URI Qualified Code(s): J06.9 - Acute upper respiratory infection, unspecified - Discharge Dispostion Disposition: HOME Condition at time of disposition: Improved - Prescriptions Prescriptions: Nitrofurantoin Monohyd/M-Cryst [Macrobid] 100 mg PO BID #14 capsule Metoclopramide HCl [Reglan] 10 mg PO TID #30 tablet - Referrals Referrals: Sanchez Irizarry [Primary Care Provider] - Oscar Hyde MD [Staff Physician] - - Patient Instructions Printed Discharge Instructions: DI for Hyperemesis Gravidarum, DI for Viral Upper Respiratory Infection -- Adult
[2016-12-15] MEDS ORDERED: SODIUM CHLORIDE 1,000 ML IV STA (23:53)
[2016-12-15] MEDS ORDERED: METOCLOPRAMIDE HCL INJECTION 10 MG/2 ML VIAL IVPUSH ONE (23:53)
[2016-12-16] MEDS ORDERED: METOCLOPRAMIDE HCL INJECTION 10 MG/2 ML VIAL ONE (00:20)
[2016-12-16 00:22] LABS: BASOPHIL 0.7 % (0-2.0); EOSINOPHIL 0.6 % (0-4.5); MCH 30.1 pg (25.7-33.7); MEAN CELL VOLUME 86.1 fl (80-96); MEAN PLT VOLUME 8.5 fl (7.5-11.1); NEUTROPHILS 84.3 % (42.8-82.8); PLATELET COUNT 226 K/MM3 (134-434); WHITE BLOOD COUNT 11.6 K/mm3 (4.0-10.0)
[2016-12-16 00:47] LABS: ALBUMIN 3.4 g/dl (3.4-5.0); ANION GAP 12 (8-16); BILIRUBIN,TOTAL 0.3 mg/dL (0.2-1.0); CALCIUM 8.6 mg/dL (8.5-10.1); CO2 25 mmol/L (21-32); CREATININE 0.4 mg/dL (0.55-1.02); GLUCOSE,RANDOM 94 mg/dL (74-106); SGOT/AST 21 U/L (15-37); SGPT/ALT 41 U/L (12-78)
[2016-12-16 01:02] LABS: ALK PHOS 75 U/L (45-117)
[2016-12-16 02:10] LABS: URINE APPEARANCE SLCLOUDY; URINE BILIRUBIN NEGATIVE (NEGATIVE); URINE BLOOD NEGATIVE (NEGATIVE); URINE COLOR YELLOW; URINE GLUCOSE (UA) NEGATIVE (NEGATIVE); URINE KETONE 2+ (NEGATIVE); URINE NITRITE NEGATIVE (NEGATIVE); URINE PROTEIN NEGATIVE (NEGATIVE); URINE UROBILINOGEN NEGATIVE mg/dL (0.2-1.0)
[2016-12-16] MEDS ORDERED: NITROFURANTOIN MACROCRYSTAL 50 MG CAPSULE (FP) PO SCH (02:15)
[2016-12-16] MEDS ORDERED: METOCLOPRAMIDE HCL 10 MG TABLET (FP) PO ONE ×2 (02:16→02:21)
[2016-12-16] MEDS ORDERED: NITROFURANTOIN MACROCRYSTAL 50 MG CAPSULE (FP) ONE (02:21)
[2016-12-16 09:56] LABS: URINE LEUK ESTERASE Negative (NEGATIVE)
== END 2016-12-16 02:29 | disposition home or self-care (01) ==
LOC: JER 22:28
PROC: 3E033GC Introduction of Other Therapeutic Substance into Peripheral Vein, Percutaneous Approach (ICD-10-PCS; principal; 2016-12-15)
DX: O26.891 Other specified pregnancy related conditions, first trimester (principal); O21.0 Mild hyperemesis gravidarum; O99.53 Diseases of the respiratory system complicating the puerperium; J06.9 Acute upper respiratory infection, unspecified; Z3A.13 13 weeks gestation of pregnancy
CPT/HCPCS: 36415; 76801-TC; 80053; 81003; 84702; 84703; 85025; 87086; 87186; 87804; 99282-25

== ENCOUNTER 2017-02-19 10:50 | Inpatient (IN) | payer OTHER ==
[2017-02-19 11:49] LABS: BASO % 0.4 % (0-2.0); EOS % 0.6 % (0-4.5); HEMATOCRIT 34.1 % (32.4-45.2); HEMOGLOBIN 11.3 GM/dL (10.7-15.3); LYMPH % 12.3 % (8-40); MCH 29.1 pg (25.7-33.7); MCHC 33.1 g/dl (32.0-36.0); MEAN CELL VOLUME 87.9 fl (80-96); MEAN PLT VOLUME 8.4 fl (7.5-11.1); MONO % 4.5 % (3.8-10.2); NEUT % 82.2 % (42.8-82.8); PLATELET COUNT 226 K/MM3 (134-434); RBC 3.87 M/mm3 (3.60-5.2); RDW 13.1 % (11.6-15.6); WHITE BLOOD COUNT 15.1 K/mm3 (4.0-10.0)
[2017-02-19 11:50] LABS: INR 1.03 (0.82-1.09); PROTHROMBIN TIME (PATIENT) 11.6 SEC (9.98-11.88)
[2017-02-19 11:53] LABS: ACTIVATED PTT 25.4 SECONDS (26.9-34.4)
[2017-02-19 11:59] LABS: ALBUMIN 2.8 g/dl (3.4-5.0); ALK PHOS 88 U/L (45-117); ANION GAP 11 (8-16); BILIRUBIN,TOTAL 0.2 mg/dL (0.2-1.0); BLOOD UREA NITROGEN 6 mg/dL (7-18); CALCIUM 8.6 mg/dL (8.5-10.1); CHLORIDE 105 mmol/L (98-107); CO2 23 mmol/L (21-32); CREATININE 0.4 mg/dL (0.55-1.02); GLUCOSE,RANDOM 78 mg/dL (74-106); POTASSIUM 3.5 mmol/L (3.5-5.1); SGOT/AST 19 U/L (15-37); SGPT/ALT 34 U/L (12-78); SODIUM 139 mmol/L (136-145); TOT PROT 6.4 g/dl (6.4-8.2)
[2017-02-19 12:19] LABS: URINE APPEARANCE SLCLOUDY; URINE BILIRUBIN NEGATIVE (NEGATIVE); URINE BLOOD 2+ (NEGATIVE); URINE COLOR YELLOW; URINE GLUCOSE (UA) NEGATIVE (NEGATIVE); URINE KETONE NEGATIVE (NEGATIVE); URINE NITRITE NEGATIVE (NEGATIVE); URINE PROTEIN NEGATIVE (NEGATIVE); URINE UROBILINOGEN NEGATIVE mg/dL (0.2-1.0)
[2017-02-19 12:22] LABS: URINE LEUK ESTERASE 3+ (NEGATIVE)
[2017-02-19 12:27] LABS: COCAINE, UR NEGATIVE ng/ml (CUTOFF=300); OPIATES, URI NEGATIVE ng/ml (CUTOFF=300); PHENCYCLIDINE,URINE NEGATIVE ng/ml (CUTOFF=25); URINE AMPHETAMINES NEGATIVE ng/ml (CUTOFF=500); URINE BARBITURATES NEGATIVE ng/ml (CUTOFF=200); URINE BENZODIAZEPINES NEGATIVE ng/ml (CUTOFF=200)
[2017-02-19 12:28] LABS: METHADONE, UR NEGATIVE ng/ml (CUTOFF=300)
[2017-02-19 12:47] LABS: EPI CELLS RARE /HPF (FEW)
[2017-02-19 16:09] VITALS: TEMP 98.4
--- NOTE | 2017-02-19 16:21 | HP ---
Past Medical History - Primary Care Physician PCP:: Nikhil Arshad - Admission Chief Complaint: 22yo P3 Goo2o with prgnancy at EGA 22w 0/7d admitted with c/o vaginal spotting and found to have a short cervix with dilated cervical os. History of Present Illness: The pt presented yesterday with c/o spotting after intercourse. She was seen on L&D and the spotting had stopped but refused to wait for ultrasound. The pt went home and later called the Answering Service with c/o increased bleeding. The pt was sent back to L&D. On evaluation she was found to have a cervical length of 0.6cm and external cervical os open to 1-2cm. No contractions, no bleeding. 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: No: Alzheimer's, CVA, Dementia, Migraine, Multiple Sclerosis, Peripheral Neuropathy, Parkinson's, Seizure, Syncope, TIA, Vertigo, Other Cardiovascular: No: AFIB, Aneurysm, Aortic Insufficiency, Aortic Stenosis, CAD, CHF, Deep Vein Thrombosis, HTN, Hyperlipdemia, [place], Mitral Insufficiency, Mitral Stenosis, Murmur, Pulmonary Hypertension, Other Pulmonary: Yes: Asthma Gastrointestinal: No: Ascites, Cancer, Constipation, Crohn's Disease, Diverticulitis, Diverticulosis, Esophageal Varices, Gastritis, GERD, GI Bleed, Hemorrhoids, Hiatal Hernia, Inflamatory Bowel Disease, Irritable Bowel Disease, Pancreatitis, Peptic Ulcer Disease, Ulcerative Colitis, Other Hepatobiliary: No: Cirrhosis, Cholelithiasis, Cholecystitis, Choledocholithiasis , Hepatitis A, Hepatitis B, Hepatitis C, Other Renal/: No: Renal Failure, Renal Inusuff, BPH, Cancer, Hematuria, Hemodialysis , Neurogenic Bladder, Renal Calculi, UTI, Other Reproductive: No: Ectopic , Endometriosis, Fibroids, PID, Polycystic Ovary Syndrome, Postmenopausal, Other ...: 3 ...Para: 0 ...Term: 0 ...: 0 ...Spon : 2 ...Induced : 0 ...LMP: 09/10/16 ... Weeks Gestation by Dates: 22.0 ...EDC by Dates: 06/17/17 ...EDC by Sono: 06/25/17 Additional OB History: SAB x 2 Heme/Onc: No: Anemia, B12 Deficiency, Bleeding Disorder, Cancer, Current Chemotherapy, Current Radiation Therapy, Hemochromatosis, Hypercoaguable State, Myeloproliferative Synd, Sickle Cell Disease, Sickle Cell Trait, Thrombocytopenia, Other Infectious Disease: No: AIDS, C-Diff, Herpes Zoster, HIV, MRSA, STD's, Tuberculosis, VREF, Other Psych: No: Addictions, Anxiety, Bipolar, Depression, Panic, Psychosis, Schizophrenia, Other Musculoskeletal: No: Bursitis, Chronic low back pain, Hemiparesis, Hemiplegia, Osteoarthritis, Paraplegia, Other Rheumatology: No: Fibromyalgia, Gout, Lupus, Rheumatoid Arthritis, Sarcoidosis, Vasculitis, Other ENT: No: Allergic Rhinitis, Sinusitis, Other Endocrine: No: Mckenzie's Disease, Winthrop's Disease, Diabetes Insipidus, Diabetes Mellitus, Hyperparathyroidism, Hyperthyroidism, Hypothyroidism, Osteopenia, SIADH, Other Dermatology: No: Basal Cell, Cellulitis, Eczema, Melanoma, Psoriasis, Squamous Cell, Other Additional Medical History: Obesity - Past Surgical History Past Surgical History: Yes: None Hx Myomectomy: No Hx Transabdominal Cerclage: No - Smoking History Smoking history: Current every day smoker Have you smoked in the past 12 months: No Aproximately how many cigarettes per day: 0 - Alcohol/Substance Use Hx Alcohol Use: No History of Substance Use: reports: Marijuana - Social History Usual Living Arrangement: Yes: With Significant Other ADL: Independent Occupation: GED student History of Recent Travel: No Home Medications - Allergies Allergies/Adverse Reactions: Allergies Allergy/AdvReac Type Severity Reaction Status Date / Time Penicillins Allergy Intermediate Difficulty Verified 02/19/17 11:01 Breathing - Home Medications Home Medications: Ambulatory Orders Vit No.130/Iron/Folic [ Vitamins] 1 each PO DAILY 02/19/17 Family Disease History - Family Disease History Family History: Unremarkable Review of Systems - Review of Systems Constitutional: reports: No Symptoms Eyes: reports: No Symptoms HENT: reports: No Symptoms Neck: reports: No Symptoms Cardiovascular: reports: No Symptoms Respiratory: reports: No Symptoms Gastrointestinal: reports: No Symptoms Genitourinary: reports: Vaginal Bleeding (Resolved) Breasts: reports: No Symptoms Reported Musculoskeletal: reports: No Symptoms Integumentary: reports: No Symptoms Neurological: reports: No Symptoms Endocrine: reports: No Symptoms Hematology/Lymphatic: reports: No Symptoms Psychiatric: reports: No Symptoms Pain Intensity: 0 Physical Exam - Maternity Vital Signs: Vital Signs Temperature 97.9 F 02/19/17 11:52 Pulse Rate 80 02/19/17 11:52 Respiratory Rate 18 02/19/17 11:52 Blood Pressure 116/62 02/19/17 11:52 O2 Sat by Pulse Oximetry (%) Constitutional: Yes: Well Nourished, No Distress, Calm, Obese Eyes: Yes: WNL, Conjunctiva Clear, EOM Intact HENT: Yes: WNL, Atraumatic, Normocephalic Neck: Yes: WNL, Supple, Trachea Midline Cardiovascular: Yes: WNL, Regular Rate and Rhythm Lungs: Clear to auscultation, Normal air movement - Abdominal Exam/OB Fundal Height: 23 Number of Fetuses: Single Presentation: Breech Contractions: No - Vaginal Exam/OB Vaginal Bleediing: No Speculum Exam: Yes Dilatation (cm): 1.5 Effacement (%): 80 Amniotic Membrane Status: Intact - Physical Exam Musculoskeletal: Yes: WNL Edema: No Integumentary: Yes: WNL Deep Tendon Reflex Grade: Normal +2 ...Motor Strength: WNL Psychiatric: Yes: WNL, Alert, Oriented - Labs Lab Results: CBC, BMP 02/19/17 11:20 02/19/17 11:20 Hemorrhage Risk Assessment - Risk Factors Medium Risk Factors: Yes: None High Risk Factors: Yes: None Risk Score: 1 Risk Level: Medium Risk Imaging - Results Ultrasound: Report Reviewed Assessment/Plan 22yo P0020 with at EGA 22w 0d admitted with incompetent cervix. Pt is not alyce and is not in pain. We discussed the clinical presentation, high risk of delivery, previable gestation, severe prematurity in progressed to viability, PPROM, emergency C/S, etc. We also discussed the possible rescue cerclage, expectant management, bedrest, etc. The pt prefers to have any intervention that is likely to prolong . I reached out to [facility] for pt transfer and management in a Level 4 ob setting. I spoke to the the M, Dr. Clark, who agreed to accept a transfer.
[2017-02-19 16:42] VITALS: BMI 38.9
[2017-02-19 18:51] VITALS: BP 108/53; PULSE 83
== END 2017-02-19 18:47 | disposition short-term general hospital (02) | DRG 566 ==
LOC: JDEL 10:50 → JLDR 16:00
PROVIDERS: ADMIT Obstetrics & Gynecology; ATTEND Obstetrics & Gynecology
DX: O34.32 Maternal care for cervical incompetence, second trimester (principal); O99.332 Smoking (tobacco) complicating pregnancy, second trimester; Z3A.22 22 weeks gestation of pregnancy
CPT/HCPCS: 36415; 59025; 76801-TC; 76817-TC; 80053; 80307; 81003; 81015; 85025; 85384; 85610; 85730

== ENCOUNTER 2017-05-23 07:55 | Emergency (ER) | payer OTHER ==
[2017-05-23 08:04] VITALS: BP 108/56; PULSE 70; TEMP 97.9; BMI 37.3
[2017-05-23 08:42] LABS: HCG,QUALITATIVE URINE NEGATIVE
--- NOTE | 2017-05-23 08:49 | PDOC ---
History of Present Illness - General Chief Complaint: Lightheaded Stated Complaint: DIZZINESS Time Seen by Provider: 05/23/17 08:09 History Source: Patient Exam Limitations: No Limitations - History of Present Illness Initial Comments: 05/23/17 08:43 Patient is a 22-year-old female history of asthma presents for evaluation after having episode of dizziness with diaphoresis this morning which lasted a few seconds. Patient denies any chest pain or shortness of breath, currently with no complaints. Patient reports not eating this morning, patient noted with vaginal bleeding on April 28, normal flow May 09 normal flow, May 19 May 21 spotting. Patient concerned she may be . On February 20 patient delivered a baby at 5 months prematurely because of infection, child is . Past Medical History: [Denies]. Allergies: No known allergies Medications: None Family History: Non-contributory Social History: Denies smoking, alcohol use, or IVDU Review of Systems GENERAL/CONSTITUTIONAL: [No fever or chills. No weakness. No weight change.] HEAD, EYES, EARS, NOSE AND THROAT: [No change in vision. No ear pain or discharge. No sore throat. ] CARDIOVASCULAR: [No chest pain or shortness of breath.] RESPIRATORY: [No cough, wheezing, or hemoptysis.] GASTROINTESTINAL: [No nausea, vomiting, diarrhea or constipation. No rectal bleeding.] GENITOURINARY: [No dysuria, frequency, or change in urination.] MUSCULOSKELETAL: [No joint or muscle swelling or pain. No neck or back pain.] SKIN AND BREASTS: [No rash or easy bruising.] NEUROLOGIC: [No headache, single episode of vertigo with diaphoresis, loss of consciousness, or loss of sensation.] PSYCHIATRIC: [No depression or anxiety.] ENDOCRINE: [No increased thirst. No abnormal weight change.] HEMATOLOGIC/LYMPHATIC: [No anemia, easy bleeding, or history of blood clots.] ALLERGIC/IMMUNOLOGIC: [No hives or skin allergy. No latex allergy.] Physical Exam: GENERAL: [The patient is awake, alert, and fully oriented, in no acute distress. ] EYES: [Pupils equal, round and reactive to light, extraocular movements intact, sclera anicteric, conjunctiva clear.] ENT: [Ears normal, nares patent, oropharynx clear without exudates. Moist mucous membranes. No uvula deviation] NECK: [Normal range of motion, supple without lymphadenopathy, JVD, or masses.] LUNGS: [Breath sounds equal, clear to auscultation bilaterally. No wheezes, and no crackles.] HEART: [Regular rate and rhythm, normal S1 and S2 without murmur, rub or gallop. ] ABDOMEN: [Soft, nontender, normoactive bowel sounds. No guarding, no rebound. No masses. No bruising or abrasions] MUSCULOSKELETAL: [Normal range of motion, no edema. No clubbing or cyanosis. No cords, erythema, or tenderness. No CVA Tenderness with fist.] NEUROLOGICAL: [Cranial nerves II through XII grossly intact. Normal speech, normal gait.] PSYCH: [Normal mood, normal affect.] SKIN: [Warm, Dry, normal turgor, no rashes or lesions noted.] 05/23/17 08:48 Past History - Past Medical History Allergies/Adverse Reactions: Allergies Allergy/AdvReac Type Severity Reaction Status Date / Time Penicillins Allergy Intermediate Difficulty Verified 05/23/17 07:58 Breathing Home Medications: Ambulatory Orders Nitrofurantoin Monohyd/M-Cryst [Macrobid -] 100 mg PO BID #14 capsule 05/23/17 Anemia: No Asthma: Yes Cancer: No Cardiac Disorders: No COPD: No Diabetes: No HTN: No Seizures: No Thyroid Disease: No - Reproductive History (#): 1 Para: 0 Cervical CA: No Dysfunctional Uterine Bleeding: No Ectopic : No Endometrial CA: No Polycystic Ovaries: No Therapeutic (s) & number: No Tubal Ligation: No Spontaneous : 0 - Immunization History Immunization Up to Date: Yes - Suicide/Smoking/Psychosocial Hx Smoking Status: No Smoking History: Former smoker Have you smoked in the past 12 months: No Number of Cigarettes Smoked Daily: 0 If you are a former smoker, when did you quit?: 1 week ago Cigars Per Day: 0 Information on smoking cessation initiated: No Hx Alcohol Use: No Drug/Substance Use Hx: Yes Substance Use Type: Marijuana Hx Substance Use Treatment: No *Physical Exam - Vital Signs Last Vital Signs Temp Pulse Resp BP Pulse Ox 97.9 F 70 19 108/56 99 05/23/17 07:58 05/23/17 07:58 05/23/17 07:58 05/23/17 07:58 05/23/17 07:58 ED Treatment Course - ADDITIONAL ORDERS Additional order review: Laboratory Results 05/23/17 08:28 Urine HCG, Qual Negative Medical Decision Making - Medical Decision Making 05/23/17 08:49 A/P: Patient here for evaluation single episode of dizziness with diaphoresis which resolved quickly. Patient is concerned she may be . Will send urine . She denies any fever, no chest pain or shortness of breath, no current dizziness, no diaphoresis. 05/23/17 10:03 Laboratory Results - last 24 hr 05/23/17 08:28 Urine Color Yellow Urine Appearance Cloudy Urine pH 5.0 D Ur Specific [place] 1.023 Urine Protein Negative Urine Glucose (UA) Negative Urine Ketones Negative Urine Blood Negative Urine Nitrite Negative Urine Bilirubin Negative Urine Urobilinogen Negative Ur Leukocyte Esterase 3+ H Urine WBC (Auto) 7 Urine RBC (Auto) 1 Ur Epithelial Cells Many Urine Bacteria Rare Urine Mucus Rare Urine HCG, Qual Negative Patient with leukoesterase +3 with a WBC count of 7 we'll treat for UTI on Macrobid. Patient does have follow-up appointment INVESTMENT SPECIALIST today. *DC/Admit/Observation/Transfer Diagnosis at time of Disposition: Dizziness Urinary tract infection Qualifiers: Urinary tract infection type: site unspecified Hematuria presence: without hematuria Qualified Code(s): N39.0 - Urinary tract infection, site not specified - Discharge Dispostion Disposition: HOME Condition at time of disposition: Stable Admit: No - Prescriptions Prescriptions: Nitrofurantoin Monohyd/M-Cryst [Macrobid -] 100 mg PO BID #14 capsule - Referrals Referrals: Sanchez Irizarry [Primary Care Provider] - - Patient Instructions Printed Discharge Instructions: Urinary Tract Infection Additional Instructions: Increase fluids to prevent dehydration, follow-up with INVESTMENT SPECIALIST today Motrin for fever greater than 101.0 Please followup with primary care in 3 days if symptoms persist Return to emergency department any increased cough, fever, inability to drink or other concerns - Post Discharge Activity Forms/Work/School Notes: Back to Work
[2017-05-23 09:50] LABS: URINE APPEARANCE CLOUDY; URINE BILIRUBIN NEGATIVE (<2.0 mg/dL); URINE BLOOD NEGATIVE (NEGATIVE); URINE COLOR YELLOW; URINE GLUCOSE (UA) NEGATIVE (NEGATIVE); URINE KETONE NEGATIVE (NEGATIVE); URINE NITRITE NEGATIVE (NEGATIVE); URINE PROTEIN NEGATIVE (NEGATIVE); URINE UROBILINOGEN NEGATIVE mg/dL (0.2-1.0)
[2017-05-23 09:51] LABS: URINE LEUK ESTERASE 3+ (NEGATIVE)
[2017-05-23 09:56] LABS: EPI CELLS MANY /HPF (FEW); URINE BACTERIA RARE /hpf (NONE SEEN); URINE MUCUS RARE
== END 2017-05-23 10:20 | disposition home or self-care (01) ==
LOC: JER 07:55 → JERFT 07:55
DX: N39.0 Urinary tract infection, site not specified (principal); R42 Dizziness and giddiness
CPT/HCPCS: 36415; 81003; 81015; 84703; 87086; 87491; 87591; 99281-25

== ENCOUNTER 2017-09-09 08:18 | Emergency (ER) | payer OTHER ==
[2017-09-09 08:30] VITALS: BP 106/73; PULSE 59; TEMP 97.7; BMI 39.4
[2017-09-09] MEDS ORDERED: KETOROLAC TROMETHAMINE 60 MG/2 ML VIAL IM ONE (08:50)
[2017-09-09] MEDS ORDERED: KETOROLAC TROMETHAMINE 60 MG/2 ML VIAL ONE (08:59)
--- NOTE | 2017-09-09 09:04 | PDOC ---
History of Present Illness - General Chief Complaint: Toothache Stated Complaint: TOOTHACHE Time Seen by Provider: 09/09/17 08:50 History Source: Patient - History of Present Illness Timing/Duration: other Associated Symptoms: denies: fever/chills Past History - Past Medical History Allergies/Adverse Reactions: Allergies Allergy/AdvReac Type Severity Reaction Status Date / Time Penicillins Allergy Intermediate Difficulty Verified 09/09/17 08:27 Breathing Home Medications: Ambulatory Orders Clindamycin [Cleocin -] 300 mg PO Q6HPO #28 capsule 09/09/17 Hydrocodone/Ibuprofen [Hydrocodone-Ibuprofen 7.5-200] 1 each PO Q6H #12 tablet MDD 4 tabs 09/09/17 Anemia: No Asthma: Yes Cancer: No Cardiac Disorders: No COPD: No Diabetes: No HTN: No Seizures: No Thyroid Disease: No - Reproductive History (#): 1 Para: 0 Cervical CA: No Dysfunctional Uterine Bleeding: No Ectopic : No Endometrial CA: No Polycystic Ovaries: No Therapeutic (s) & number: No Tubal Ligation: No Spontaneous : 0 - Immunization History Immunization Up to Date: Yes - Suicide/Smoking/Psychosocial Hx Smoking Status: No Smoking History: Never smoked Have you smoked in the past 12 months: No Number of Cigarettes Smoked Daily: 0 If you are a former smoker, when did you quit?: 1 week ago Cigars Per Day: 0 Information on smoking cessation initiated: No Hx Alcohol Use: No Drug/Substance Use Hx: No Substance Use Type: Marijuana Hx Substance Use Treatment: No Review of Systems - Review of Systems Constitutional: No: Chills, Fever *Physical Exam - Vital Signs Last Vital Signs Temp Pulse Resp BP Pulse Ox 97.7 F 59 L 16 106/73 99 09/09/17 08:27 09/09/17 08:27 09/09/17 08:27 09/09/17 08:27 09/09/17 08:27 - Physical Exam General Appearance: Yes: Appropriately Dressed. No: Apparent Distress HEENT: positive: Normal Voice, Other (minimal swelling to gingiva of R lower 2nd molar w/ minimal ttp, no drainage/fluctuance, ?minimal swelling to R submandibular area) Neck: negative: Lymphadenopathy (R), Lymphadenopathy (L) Respiratory/Chest: negative: Respiratory Distress Integumentary: positive: Dry, Warm Neurologic: positive: Fully Oriented, Alert, Normal Mood/Affect Medical Decision Making - Medical Decision Making 09/09/17 09:04 22 yo F, no sig hx, here w/ worsening toothache. She reports that she developed pain to right lower second and third molar several weeks ago and was told by her dentist that she needed extractions but states her appt is not until 10/01 and here b/c pain persists. Denies f/c. Taking 800mg motrin w/ no relief. Pt well hannah and stable w/ minimal swelling to gingiva of R lower 2nd molar but no e/o abscess at this time. Dc w/ pain control and abx. Pt told to call dentist for sooner appt and if sxs worsened, to go immediately to urgent care dental clinic in [place] *DC/Admit/Observation/Transfer Diagnosis at time of Disposition: Toothache - Discharge Dispostion Disposition: HOME Condition at time of disposition: Good - Prescriptions Prescriptions: Clindamycin [Cleocin -] 300 mg PO Q6HPO #28 capsule Hydrocodone/Ibuprofen [Hydrocodone-Ibuprofen 7.5-200] 1 each PO Q6H #12 tablet MDD 4 tabs - Referrals Referrals: Sanchez Irizarry [Primary Care Provider] - - Patient Instructions Printed Discharge Instructions: DI for Dental Pain Additional Instructions: Take medication as directed and call your dentist for a sooner appointment Please go immediately to urgent care dental clinic: [facility] [address] [place], [place] [id number] - Post Discharge Activity
== END 2017-09-09 09:38 | disposition home or self-care (01) ==
LOC: JERFT 08:18
PROC: 3E0233Z Introduction of Anti-inflammatory into Muscle, Percutaneous Approach (ICD-10-PCS; principal; 2017-09-09)
DX: K08.89 Other specified disorders of teeth and supporting structures (principal)
CPT/HCPCS: 96372; 99281-25

== ENCOUNTER 2018-03-14 17:31 | Emergency (ER) | payer OTHER ==
[2018-03-14 17:48] VITALS: BP 104/56; PULSE 75; TEMP 98.1; BMI 39.4
--- NOTE | 2018-03-14 17:48 | PDOC ---
Rapid Medical Evaluation Time Seen by Provider: 03/14/18 17:45 Medical Evaluation: Allergies Allergy/AdvReac Type Severity Reaction Status Date / Time Penicillins Allergy Intermediate Difficulty Verified 09/09/17 08:27 Breathing 03/14/18 17:45 I performed a brief in-person evaluation of this patient. Chief complaint is: Pelvic pain x 1 day, , LMP 02/10. . Pertinent physical exam findings include: No abdominal or flank tenderness. I have ordered the following: UA/culture, urine preg, bhcg, u/s Patient will proceed to the ED for further evaluation. Discharge Disposition - Diagnosis Pelvic pain affecting Qualifiers: Trimester: unspecified trimester Qualified Code(s): O26.899 - Other specified related conditions, unspecified trimester; R10.2 - Pelvic and perineal pain - Referrals - Patient Instructions - Post Discharge Activity
== END 2018-03-14 20:00 | disposition home or self-care (01) ==
LOC: JER 17:31
DX: O26.891 Other specified pregnancy related conditions, first trimester (principal); Z3A.01 Less than 8 weeks gestation of pregnancy; R10.2 Pelvic and perineal pain
CPT/HCPCS: 99281-25

== ENCOUNTER 2018-05-06 14:49 | Emergency (ER) | payer OTHER ==
[2018-05-06 14:54] VITALS: BP 117/57; PULSE 98; TEMP 98.3; BMI 40.5
--- NOTE | 2018-05-06 15:49 | PDOC ---
History of Present Illness - General Chief Complaint: Abscess Boil Stated Complaint: COLD SYMPTOMS Time Seen by Provider: 05/06/18 15:18 History Source: Patient Exam Limitations: No Limitations - History of Present Illness Initial Comments: 05/06/18 15:49 Patient came for evaluation of abscess brewing to the inner aspect of her butt cheeks. Patient states suffers from abscesses frequently/folliculitis frequently due to shaving. Is now in 1 12th week of that is been compensated by excessive morning sickness otherwise denies fever, denies any purulent drainage from abscess, denies any other illness presently. Timing/Duration: unsure, other (1 month) Severity: mild, moderate Associated Symptoms: reports: fever/chills (last PM) Past History - Travel Traveled outside of the country in the last 30 days: No Close contact w/someone who was outside of country & ill: No - Past Medical History Allergies/Adverse Reactions: Allergies Allergy/AdvReac Type Severity Reaction Status Date / Time Penicillins Allergy Intermediate Difficulty Verified 05/06/18 14:54 Breathing Home Medications: Ambulatory Orders NK [No Known Home Medication] 05/06/18 Anemia: No Asthma: Yes Cancer: No Cardiac Disorders: No COPD: No Diabetes: No HTN: No Seizures: No Thyroid Disease: No - Reproductive History (#): 1 Para: 0 Cervical CA: No Dysfunctional Uterine Bleeding: No Ectopic : No Endometrial CA: No Polycystic Ovaries: No Therapeutic (s) & number: No Tubal Ligation: No Spontaneous : 0 - Immunization History Immunization Up to Date: Yes - Suicide/Smoking/Psychosocial Hx Smoking Status: No Smoking History: Never smoked Have you smoked in the past 12 months: No Number of Cigarettes Smoked Daily: 0 If you are a former smoker, when did you quit?: 1 week ago Cigars Per Day: 0 Hx Alcohol Use: No Drug/Substance Use Hx: No Substance Use Type: Marijuana Hx Substance Use Treatment: No Review of Systems - Review of Systems Able to Perform ROS?: Yes Is the patient limited Frisian proficient: Yes Constitutional: Yes: Symptoms Reported, See HPI, Fever, Malaise Respiratory: Yes: See HPI. No: Symptoms reported ABD/GI: No: Abd. Pain w/ defecation Musculoskeletal: No: Symptoms Reported Integumentary: Yes: Symptoms Reported, See HPI, Lesions (mult healing lesions ) Neurological: No: Symptoms reported All Other Systems: Reviewed and Negative *Physical Exam - Vital Signs Last Vital Signs Temp Pulse Resp BP Pulse Ox 98.3 F 98 H 18 117/57 L 99 05/06/18 14:51 05/06/18 14:51 05/06/18 14:51 05/06/18 14:51 05/06/18 14:51 - Physical Exam General Appearance: Yes: Nourished, Appropriately Dressed, Apparent Distress, Mild Distress HEENT: positive: SABINE, Normal ENT Inspection, Normal Voice, TMs Normal, Pharynx Normal Neck: positive: Supple. negative: Tender Respiratory/Chest: positive: Lungs Clear, Normal Breath Sounds. negative: Chest Tender Gastrointestinal/Abdominal: positive: Soft. negative: Tender Extremity: positive: Normal Capillary Refill, Normal Inspection, Tender Integumentary: positive: Dry, Warm, Pale, Other (erythematous and tender lesion to the inner aspect of her right butt cheek, not pointing) Neurologic: positive: enterprise account manager II-XII NML intact, Fully Oriented, Alert, Normal Mood/ Affect, Normal Response, Motor Strength 5/5 Moderate Sedation - Procedure Monitoring Vital Signs: Procedure Monitoring Vital Signs Temperature 98.3 F 05/06/18 14:51 Pulse Rate 98 H 05/06/18 14:51 Respiratory Rate 18 05/06/18 14:51 Blood Pressure 117/57 L 05/06/18 14:51 O2 Sat by Pulse Oximetry (%) 99 05/06/18 14:51 - Post Procedure Assessment Tolerated procedure well: No Was a reversal agent used?: No Procedures - Incision and Drainage I&D Site: Right: Perirectal (buttock) Betadine cleansed: Yes Anesthesia: 1% Lidocaine Blade Size: 11 Iodinated Packin/4 in Complications: none Dressing: Yes Medical Decision Making - Medical Decision Making 05/06/18 16:29 Abscess to right buttock incised and drained. Wound culture sent. Will hold antibiotics as a significant amount of purulent drainage was expressed from wound and patient now 12 weeks . Patient understands to soak area trying to avoid dislodging the packing for the next 2 days. Has appointment with her PREFORM PLATE MAKER on Monday who will hopefully perform a wound check and packing removal. Patient understands to remove packing if this does not occur and understands to return to emergency department if symptoms worsen, fevers occur, or worsen swelling. *DC/Admit/Observation/Transfer Diagnosis at time of Disposition: Abscess - Discharge Dispostion Disposition: HOME Condition at time of disposition: Stable Decision to Admit order: No - Referrals Referrals: Sanchez Irizarry [Primary Care Provider] - - Patient Instructions Printed Discharge Instructions: DI for Incision and Drainage of a Skin Abscess Additional Instructions: Rest, keep area elevated. Avoid strenuous activity or exercise until wound is healed Use hot soaks to area to bring more blood to the surface and encourage drainage May change dressings as needed to keep clean - trying to avoid removal of packing for 2 days. If packing needs to be changed, return to emergency department or with your followup physician for wound care and evaluation and repacking as needed If packing needs to be removed, then in 2 days, while in the shower remove dressing and quickly pull the packing taken out. Allow water from shower to wash area thoroughly for 2-3 minutes, and pat dry upon exit of shower and replace dressing. Change his dressing daily until the wound is completely healed. May use Tylenol or Motrin for mild pain relief Use stronger medications as directed and prescribed Continue all medications as prescribed Followup with private physician in 2-3 days for wound check Return to emergency Department for worsening swelling, pain, redness, fevers as needed - Post Discharge Activity Forms/Work/School Notes: Back to Work
[2018-05-06] MEDS ORDERED: LIDOCAINE 1%/EPI 1:100000 (20 ML MULTI DOSE VIAL) ONE (17:32)
== END 2018-05-06 16:38 | disposition home or self-care (01) ==
LOC: JER 14:49 → JERFT 14:49
PROC: 0J990ZZ Drainage of Buttock Subcutaneous Tissue and Fascia, Open Approach (ICD-10-PCS; principal; 2018-05-06)
DX: O99.89 Other specified diseases and conditions complicating pregnancy, childbirth and the puerperium (principal); L02.31 Cutaneous abscess of buttock; Z3A.12 12 weeks gestation of pregnancy
CPT/HCPCS: 10060; 99282-25

== ENCOUNTER 2018-08-25 11:20 | Emergency (ER) | payer OTHER ==
[2018-08-25 11:30] VITALS: BP 110/63; PULSE 104; TEMP 98.2; BMI 42.3
[2018-08-25] MEDS ORDERED: ACETAMINOPHEN 500 MG TABLET (FP) PO ONE (12:01)
--- NOTE | 2018-08-25 12:07 | PDOC ---
History of Present Illness - General Chief Complaint: Abscess Boil Stated Complaint: 28 W PREG/ABSCESS BOIL Time Seen by Provider: 08/25/18 11:37 History Source: Patient Exam Limitations: No Limitations - History of Present Illness Initial Comments: 08/25/18 12:01 Patient is here with complaints of abscess that's growing larger to her right upper groin. States has suffered from abscess on her buttocks proximally one year ago that required incision and drainage. States this one started 3 days ago and is progressively worsened. No resolve with hot soaks Timing/Duration: unsure, 24 hours Severity: moderate, severe Past History - Travel Traveled outside of the country in the last 30 days: No Close contact w/someone who was outside of country & ill: No - Past Medical History Allergies/Adverse Reactions: Allergies Allergy/AdvReac Type Severity Reaction Status Date / Time Penicillins Allergy Intermediate Difficulty Verified 08/25/18 11:26 Breathing Home Medications: Ambulatory Orders NK [No Known Home Medication] 05/06/18 Anemia: No Asthma: Yes Cancer: No Cardiac Disorders: No COPD: No Diabetes: No HTN: No Seizures: No Thyroid Disease: No - Reproductive History (#): 1 Para: 0 Cervical CA: No Dysfunctional Uterine Bleeding: No Ectopic : No Endometrial CA: No Polycystic Ovaries: No Therapeutic (s) & number: No Tubal Ligation: No Spontaneous : 0 - Immunization History Immunization Up to Date: Yes - Suicide/Smoking/Psychosocial Hx Smoking Status: No Smoking History: Never smoked Have you smoked in the past 12 months: No Number of Cigarettes Smoked Daily: 0 If you are a former smoker, when did you quit?: 1 week ago Cigars Per Day: 0 Hx Alcohol Use: No Drug/Substance Use Hx: No Substance Use Type: Marijuana Hx Substance Use Treatment: No Review of Systems - Review of Systems Able to Perform ROS?: Yes Is the patient limited Lithuanian proficient: Yes Constitutional: Yes: Symptoms Reported, See HPI, Malaise. No: Fever HEENTM: No: Symptoms Reported Musculoskeletal: Yes: Symptoms Reported, See HPI Integumentary: Yes: Symptoms Reported, See HPI, Erythema, Lesions All Other Systems: Reviewed and Negative *Physical Exam - Vital Signs Last Vital Signs Temp Pulse Resp BP Pulse Ox 98.2 F 104 H 18 110/63 99 08/25/18 11:24 08/25/18 11:24 08/25/18 11:24 08/25/18 11:24 08/25/18 11:24 - Physical Exam General Appearance: Yes: Nourished, Appropriately Dressed, Apparent Distress, Mild Distress HEENT: positive: SABINE, Normal ENT Inspection, TMs Normal, Pharynx Normal Neck: positive: Supple. negative: Tender Respiratory/Chest: positive: Lungs Clear Musculoskeletal: positive: Normal Inspection Extremity: positive: Normal Capillary Refill, Normal Range of Motion Integumentary: positive: Erythema, Other (4 cm indurated pointing lesion fluctuant to upper right groin.) Neurologic: positive: critical care nurse practitioner II-XII NML intact, Fully Oriented, Alert, Normal Mood/ Affect, Normal Response, Motor Strength 5/5 Procedures - Incision and Drainage I&D Site: Right: Leg (upper inner groin) Betadine cleansed: Yes Anesthesia: 1% Lidocaine Blade Size: 11 Iodinated Packin/ in Complications: none Dressing: Yes Medical Decision Making - Medical Decision Making 08/25/18 12:07 Abscess incised and drained. We will withhold antibiotics as patient is 28 weeks . Will soak and watch closely for any evidence of worsening infection and return to emergency department *DC/Admit/Observation/Transfer Diagnosis at time of Disposition: Skin abscess Qualifiers: Site of cutaneous abscess: extremity Site of cutaneous abscess of extremity: lower extremity Laterality: right Qualified Code(s): L02.415 - Cutaneous abscess of right lower limb - Discharge Dispostion Disposition: HOME Condition at time of disposition: Stable Decision to Admit order: No - Referrals Referrals: Sanchez Irizarry [Primary Care Provider] - - Patient Instructions Printed Discharge Instructions: DI for Incision and Drainage of a Skin Abscess Additional Instructions: Rest, keep area elevated. Avoid strenuous activity or exercise until wound is healed Use hot soaks to area to bring more blood to the surface and encourage drainage May change dressings as needed to keep clean - trying to avoid removal of packing for 2 days. If packing needs to be changed, return to emergency department or with your followup physician for wound care and evaluation and repacking as needed If packing needs to be removed, then in 2 days, while in the shower remove dressing and quickly pull the packing taken out. Allow water from shower to wash area thoroughly for 2-3 minutes, and pat dry upon exit of shower and replace dressing. Change his dressing daily until the wound is completely healed. May use Tylenol for mild pain relief Followup with private physician in 2-3 days for wound check Return to emergency Department for worsening swelling, pain, redness, fevers as needed - Post Discharge Activity
== END 2018-08-25 12:23 | disposition home or self-care (01) ==
LOC: JERFT 11:20
PROC: 0J9C0ZZ Drainage of Pelvic Region Subcutaneous Tissue and Fascia, Open Approach (ICD-10-PCS; principal; 2018-08-25)
DX: O26.893 Other specified pregnancy related conditions, third trimester (principal); L02.214 Cutaneous abscess of groin; Z3A.28 28 weeks gestation of pregnancy
CPT/HCPCS: 10060; 87070; 87205; 99282-25

== ENCOUNTER 2018-12-01 01:45 | Emergency (ER) | payer OTHER ==
[2018-12-01 02:04] VITALS: BP 102/77; PULSE 82; TEMP 98; BMI 80.6
--- NOTE | 2018-12-01 02:04 | PDOC ---
History of Present Illness - General Chief Complaint: Abscess Boil Stated Complaint: CYST Time Seen by Provider: 12/01/18 02:03 - History of Present Illness Initial Comments: The pt is a 23F w/ a history of asthma and multiple abscesses who presents for evaluation of 1 day of right inguinal swelling and pain. The pt denies fevers/ chills, chest pain, N/V/C/D, dysuria, hematuria, diarrhea, blood in her stool, change in vaginal bleeding or discharge. She has not tired taking anything for her pain. 12/01/18 02:52 Past History - Past Medical History Allergies/Adverse Reactions: Allergies Allergy/AdvReac Type Severity Reaction Status Date / Time Penicillins Allergy Intermediate Difficulty Verified 08/25/18 11:26 Breathing Home Medications: Ambulatory Orders Sulfamethoxazole/Trimethoprim [Bactrim Ds -] 1 tab PO BID #10 tablet 12/01/18 Anemia: No Asthma: Yes Cancer: No Cardiac Disorders: No COPD: No Diabetes: No HTN: No Seizures: No Thyroid Disease: No - Reproductive History (#): 1 Para: 0 Cervical CA: No Dysfunctional Uterine Bleeding: No Ectopic : No Endometrial CA: No Polycystic Ovaries: No Therapeutic (s) & number: No Tubal Ligation: No Spontaneous : 0 - Immunization History Immunization Up to Date: Yes - Psycho Social/Smoking Cessation Hx Smoking Status: No Smoking History: Never smoked Have you smoked in the past 12 months: No Number of Cigarettes Smoked Daily: 0 If you are a former smoker, when did you quit?: 1 week ago Cigars Per Day: 0 Hx Alcohol Use: No Drug/Substance Use Hx: No Substance Use Type: Marijuana Hx Substance Use Treatment: No Review of Systems - Review of Systems Able to Perform ROS?: Yes Comments:: GENERAL/CONSTITUTIONAL: No fever or chills. No weakness HEAD, EYES, EARS, NOSE AND THROAT: No change in vision. No change in hearing. No sore throat CARDIOVASCULAR: No chest pain or shortness of breath RESPIRATORY: Denies cough, hemoptysis GASTROINTESTINAL: No nausea, vomiting, diarrhea or constipation GENITOURINARY: No dysuria, frequency, or change in urination MUSCULOSKELETAL: No joint or muscle swelling or pain. No neck or back pain SKIN: R inguinal swelling NEUROLOGIC: No headache, vertigo, loss of consciousness, or change in strength/ sensation ENDOCRINE: No increased thirst. No abnormal weight change HEMATOLOGIC/LYMPHATIC: No anemia, easy bleeding, or history of blood clots ALLERGIC/IMMUNOLOGIC: No hives or skin allergy 12/01/18 02:03 Is the patient limited Surinamese proficient: No *Physical Exam - Physical Exam Comments: GENERAL: Awake, alert, and oriented to person/place/time, in no acute distress HEAD: No signs of trauma, normocephalic, atraumatic EYES: PERRLA, EOMI, sclera anicteric, conjunctiva clear ENT: Hearing grossly normal, nares patent, oropharynx clear without exudates. No uvular deviation. Moist mucosa LUNGS: No distress, speaks in full sentences, clear to auscultation bilaterally HEART: Regular rate and rhythm, normal S1 and S2, no murmurs appreciated, peripheral pulses normal and equal bilaterally ABDOMEN: Soft, nontender, normoactive bowel sounds. No guarding, no rebound EXTREMITIES: Normal inspection, Normal range of motion, no edema. No clubbing or cyanosis NEUROLOGICAL: Cranial nerves II through XII grossly intact. Normal speech, no focal sensorimotor deficits SKIN: R inguinal swelling, TTP, fluctuance, and mild overlying erythema 12/01/18 02:04 Medical Decision Making - Medical Decision Making The pt is a 23F w/ a history of asthma and previous abscesses who presents for evaluation of 1 day of R inguinal abscess ED Course Tylenol for pain 975mg PO once for pain S/p I&D and iodoform packing Rx for Bactrim BID for 5 days Plan for D/C w/ PCP f/u Discharge instructions and return precautions given Pt in agreement and verbalized understanding Dispo: home 12/01/18 02:58 Discharge - Discharge Information Problems reviewed: Yes Clinical Impression/Diagnosis: Abscess Condition: Improved Disposition: HOME - Admission No - Follow up/Referral Referrals: Sanchez Irizarry [Primary Care Provider] - Reyna Smith MD [Staff Physician] - - Patient Discharge Instructions Patient Printed Discharge Instructions: DI for Incision and Drainage of a Skin Abscess Additional Instructions: You were seen in the Emergency Department for evaluation of an abscess that was drained today. A prescription for Bactrim was sent to the pharmacy that you specified. Take twice a day for 5 days. Wash the wound every day with soap and water. Follow up with your primary care provider. Return to the Emergency Department if you develop fevers/chills, chest pain, trouble breathing, worsening redness, worsening symptoms, or any new/concerning symptoms. - Post Discharge Activity Work/Back to School Note: Back to Work
[2018-12-01] MEDS ORDERED: ACETAMINOPHEN 325 MG TABLET (FP) PO ONE (02:15)
[2018-12-01] MEDS ORDERED: ACETAMINOPHEN 325 MG TABLET (FP) ONE (02:17)
[2018-12-01] MEDS ORDERED: SULFAMETHOXAZOLE/TRIMETHOPRIM 800MG/160MG D.S. TABLET PO ONE (03:04)
[2018-12-01] MEDS ORDERED: SULFAMETHOXAZOLE/TRIMETHOPRIM 800MG/160MG D.S. TABLET ONE (03:08)
--- NOTE | 2018-12-01 03:20 | PDOC ---
Attending Attestation - Resident Resident Name: Juan Carlos Teresa - ED Attending Attestation I have performed the following: I have examined & evaluated the patient, The case was reviewed & discussed with the resident, I agree w/resident's findings & plan, Exceptions are as noted - HPI HPI: 12/01/18 03:19 Ms Antony is a 23 yo F who presents to the ER with a complaint of 1 day of right inguinal swelling and pain Pt has previously had local abscesses requiring drainage No associated fevers or chills No history of MRSA Pt has taken no medications for pain - Physicial Exam PE: 12/01/18 03:44 GENERAL: Awake, alert LUNGS: No distress, speaks in full sentences, clear to auscultation bilaterally HEART: Regular rate and rhythm, normal S1 and S2, no murmurs appreciated, peripheral pulses normal and equal bilaterally ABDOMEN: Soft, nontender, normoactive bowel sounds. No guarding, no rebound EXTREMITIES: Normal inspection, Normal range of motion, no edema. NEUROLOGICAL: Cranial nerves II through XII grossly intact. Normal speech, no focal sensorimotor deficits SKIN: R inguinal swelling, TTP, fluctuant, and mild overlying erythema - Medical Decision Making 12/01/18 03:44 Bedside US performed and demonstrates small collection Pt abscess incised and drained Packing placed Monitor for local cellulitis monitor for abscess re accumulation
== END 2018-12-01 03:14 | disposition home or self-care (01) ==
LOC: JER 01:45
PROC: 0J9C0ZZ Drainage of Pelvic Region Subcutaneous Tissue and Fascia, Open Approach (ICD-10-PCS; principal; 2018-12-01)
PROC: BH49ZZZ Ultrasonography of Abdominal Wall (ICD-10-PCS; 2018-12-01)
DX: L02.214 Cutaneous abscess of groin (principal)
CPT/HCPCS: 10060; 76857; 99282-25

== ENCOUNTER 2019-02-20 18:48 | Emergency (ER) | payer OTHER ==
[2019-02-20 18:56] VITALS: BP 113/69; PULSE 88; TEMP 98.6; BMI 38.2
--- NOTE | 2019-02-20 19:01 | PDOC ---
Rapid Medical Evaluation Chief Complaint: Cold Symptoms Time Seen by Provider: 02/20/19 18:59 Medical Evaluation: Allergies Allergy/AdvReac Type Severity Reaction Status Date / Time Penicillins Allergy Intermediate Difficulty Verified 08/25/18 11:26 Breathing Vital Signs Temp Pulse Resp BP Pulse Ox 98.6 F 88 18 113/69 98 02/20/19 18:52 02/20/19 18:52 02/20/19 18:52 02/20/19 18:52 02/20/19 18:52 02/20/19 18:59 Pt c/o: clogged ears, stuffy nose, sore throat, no fever pt on brief exam: vss, no acute distress Pt ordered for: none pt to proceed to the ED Discharge Disposition - Diagnosis Congestion of both ears - Discharge Dispostion Condition at time of disposition: Stable - Referrals - Patient Instructions - Post Discharge Activity
[2019-02-20] MEDS ORDERED: IBUPROFEN 600 MG TABLET (FP) PO ONE ×2 (19:46→19:48)
--- NOTE | 2019-02-20 20:58 | PDOC ---
History of Present Illness - General Chief Complaint: Cold Symptoms Stated Complaint: COLD SYMPTOMS Time Seen by Provider: 02/20/19 18:59 - History of Present Illness Initial Comments: 02/20/19 20:56 24-year-old female shows me there is no chance of presents for nasal congestion and right ear pain x1 day without systemic symptoms Past History - Past Medical History Allergies/Adverse Reactions: Allergies Allergy/AdvReac Type Severity Reaction Status Date / Time Penicillins Allergy Intermediate Difficulty Verified 08/25/18 11:26 Breathing Home Medications: Ambulatory Orders Sulfamethoxazole/Trimethoprim [Bactrim Ds -] 1 tab PO BID #10 tablet 12/01/18 Budesonide [Rhinocort Allergy] 1 spray NS ONCE #1 spray.pump 02/20/19 Cetirizine HCl/Pseudoephedrine [Zyrtec-D Tablet] 1 each PO DAILY #30 tab.er.12h 02/20/19 Anemia: No Asthma: Yes Cancer: No Cardiac Disorders: No COPD: No Diabetes: No HTN: No Seizures: No Thyroid Disease: No - Reproductive History (#): 1 Para: 0 Cervical CA: No Dysfunctional Uterine Bleeding: No Ectopic : No Endometrial CA: No Polycystic Ovaries: No Therapeutic (s) & number: No Tubal Ligation: No Spontaneous : 0 - Immunization History Immunization Up to Date: Yes - Psycho Social/Smoking Cessation Hx Smoking Status: No Smoking History: Never smoked Have you smoked in the past 12 months: No Number of Cigarettes Smoked Daily: 0 If you are a former smoker, when did you quit?: 1 week ago Cigars Per Day: 0 Information on smoking cessation initiated: No Hx Alcohol Use: No Drug/Substance Use Hx: No Substance Use Type: Marijuana Hx Substance Use Treatment: No Review of Systems - Review of Systems Constitutional: No: Fever HEENTM: Yes: Ear Pain, Nose Congestion *Physical Exam - Vital Signs Last Vital Signs Temp Pulse Resp BP Pulse Ox 98.6 F 88 18 113/69 98 02/20/19 18:52 02/20/19 18:52 02/20/19 18:52 02/20/19 18:52 02/20/19 18:52 - Physical Exam 02/20/19 20:57 GENERAL: The patient is awake, alert, and fully oriented, in no acute distress. HEAD: Normal with no signs of trauma. EYES: sclera anicteric, conjunctiva clear. ENT: Ears normal tympanic membranes normal oropharynx clear uvula midline NECK: Normal range of motion LUNGS: Breath sounds equal, clear to auscultation bilaterally. No wheezes, and no crackles. HEART: S1 and S2 without murmur, rub or gallop. ABDOMEN: Soft, nontender, normoactive bowel sounds. No guarding, no rebound. No masses. EXTREMITIES: Normal range of motion, no edema. No clubbing or cyanosis. No cords, erythema, or tenderness. NEUROLOGICAL: Cranial nerves II through XII grossly intact. Normal speech, normal gait. PSYCH: Normal mood, normal affect. SKIN: Warm, Dry, normal turgor, no rashes or lesions noted. ED Treatment Course - Medications Given in the ED: ED Medications Discontinued Medications Generic Name Dose Route Start Last Admin Trade Name Freq PRN Reason Stop Dose Admin Ibuprofen 600 mg 02/20/19 19:48 02/20/19 19:58 Motrin - PO 02/20/19 19:49 600 mg ONCE ONE Administration Medical Decision Making - Medical Decision Making 02/20/19 20:57 We will treat for rhinitis and nasal congestion follow-up with primary care physician. 1 day of symptoms negative flu swabs no systemic symptoms Discharge - Discharge Information Problems reviewed: Yes Clinical Impression/Diagnosis: Congestion of both ears Condition: Stable Disposition: HOME - Admission No - Additional Discharge Information Prescriptions: Budesonide [Rhinocort Allergy] 1 spray NS ONCE #1 spray.pump Cetirizine HCl/Pseudoephedrine [Zyrtec-D Tablet] 1 each PO DAILY #30 tab.er.12h - Follow up/Referral Referrals: Sanchez Irizarry [Primary Care Provider] - - Patient Discharge Instructions Additional Instructions: Please take the medication as directed and return to the emergency room should symptoms worsen. Without fail, follow-up with your primary care physician in 2 to 3 days for further evaluation and treatment options. - Post Discharge Activity
== END 2019-02-20 21:04 | disposition home or self-care (01) ==
LOC: JERFT 18:48
DX: H93.8X3 Other specified disorders of ear, bilateral (principal); Z88.0 Allergy status to penicillin; Z87.891 Personal history of nicotine dependence; J45.909 Unspecified asthma, uncomplicated
CPT/HCPCS: 87804; 99281-25

== ENCOUNTER 2021-11-15 08:19 | Emergency (ER) | payer OTHER ==
[2021-11-15 08:26] VITALS: BP 125/83; PULSE 68; RESP 18; TEMP 98.4; BMI 40.2
[2021-11-15] MEDS ORDERED: KETOROLAC TROMETHAMINE 30 MG/1 ML VIAL IM ONE (09:27)
[2021-11-15] MEDS ORDERED: LIDOCAINE 5% TOPICAL PATCH TP ONE (09:27)
[2021-11-15] MEDS ORDERED: ACETAMINOPHEN 500 MG TABLET (FP) PO ONE (09:27)
[2021-11-15] MEDS ORDERED: LIDOCAINE 5% TOPICAL PATCH ONE (09:31)
[2021-11-15] MEDS ORDERED: ACETAMINOPHEN 325 MG TABLET (FP) ONE (09:31)
[2021-11-15] MEDS ORDERED: KETOROLAC TROMETHAMINE 30 MG/1 ML VIAL ONE (09:31)
[2021-11-15] MEDS ORDERED: LIDOCAINE PATCH REMOVAL MC SCH (22:00)
== END 2021-11-15 10:17 | disposition home or self-care (01) ==
LOC: JER 08:19
PROC: 3E0233Z Introduction of Anti-inflammatory into Muscle, Percutaneous Approach (ICD-10-PCS; principal; 2021-11-15)
DX: M54.50 Low back pain, unspecified (principal); M54.6 Pain in thoracic spine
CPT/HCPCS: 99284-25

== ENCOUNTER 2022-12-22 20:35 | Emergency (ER) | payer OTHER ==
[2022-12-22 20:50] VITALS: BP 107/92; PULSE 76; RESP 18; TEMP 98.1; BMI 39.3
[2022-12-22] MEDS ORDERED: ACETAMINOPHEN 1000 MG/100 ML BAG IVPB ONE (21:45)
[2022-12-22] MEDS ORDERED: METOCLOPRAMIDE HCL INJECTION 10 MG/2 ML VIAL IVPB ONE (21:45)
[2022-12-22] MEDS ORDERED: METOCLOPRAMIDE HCL INJECTION 10 MG/2 ML VIAL ONE (21:51)
[2022-12-22] MEDS ORDERED: ACETAMINOPHEN INJECTION 100 ML IVPB ONE (21:52)
[2022-12-22 22:37] LABS: BASO % 0.4 % (0-2.0); EOS % 0.6 % (0-4.5); HEMATOCRIT 41.4 % (32.4-45.2); HEMOGLOBIN 13.9 GM/dL (10.7-15.3); LYMPH % 18.6 % (8-40); MCH 29.9 pg (25.7-33.7); MCHC 33.7 g/dl (32.0-36.0); MEAN CELL VOLUME 88.8 fl (80-96); MONO % 5.3 % (3.8-10.2); NEUT % 75.1 % (42.8-82.8); PLATELET COUNT 333 10^3/uL (134-434); RBC 4.66 M/mm3 (3.60-5.2); RDW 13.5 % (11.6-15.6); WHITE BLOOD COUNT 11.8 K/mm3 (4.0-10.0)
[2022-12-22 22:41] LABS: EPI CELLS 32 /uL (0-25.1); HYALINE CASTS 1 /uL (0-3.1); URINE APPEARANCE CLEAR; URINE BACTERIA 436 /uL (0-1359); URINE BILIRUBIN NEGATIVE (NEGATIVE); URINE COLOR YELLOW; URINE GLUCOSE (UA) NEGATIVE (NEGATIVE); URINE KETONE NEGATIVE (NEGATIVE); URINE LEUK ESTERASE TRACE (NEGATIVE); URINE NITRITE NEGATIVE (NEGATIVE); URINE PROTEIN NEGATIVE (NEGATIVE); URINE UROBILINOGEN 0.2 mg/dL (0.2-1.0); URINE WBC 35 /uL (0-25.8)
[2022-12-22 23:07] LABS: POTASSIUM 3.7 mmol/L (3.5-5.1)
[2022-12-22 23:09] LABS: CALCIUM 8.2 mg/dL (8.5-10.1)
[2022-12-22 23:10] LABS: ALBUMIN 3.6 g/dl (3.4-5.0)
[2022-12-22 23:13] LABS: CREATININE 0.7 mg/dL (0.55-1.3)
[2022-12-22 23:14] LABS: TOT PROT 7.3 g/dl (6.4-8.2)
[2022-12-22 23:19] LABS: BILIRUBIN,TOTAL 0.3 mg/dL (0.2-1)
[2022-12-22 23:26] LABS: URINE RBC 86.9 /uL (0-23.9); YEAST NONE SEEN (NEGATIVE)
== END 2022-12-22 23:57 | disposition home or self-care (01) ==
LOC: JER 20:35
PROC: 3E033NZ Introduction of Analgesics, Hypnotics, Sedatives into Peripheral Vein, Percutaneous Approach (ICD-10-PCS; principal; 2022-12-22)
PROC: 3E033GC Introduction of Other Therapeutic Substance into Peripheral Vein, Percutaneous Approach (ICD-10-PCS; 2022-12-22)
DX: R42 Dizziness and giddiness (principal); R51.9 Headache, unspecified; M54.9 Dorsalgia, unspecified; G89.29 Other chronic pain; T50.905A Adverse effect of unspecified drugs, medicaments and biological substances, initial encounter; R20.2 Paresthesia of skin
CPT/HCPCS: 36415; 80053; 81003; 84703; 85025; 87086; 87186; 93005; 93010

== ENCOUNTER 2023-03-17 08:49 | Emergency (ER) | payer OTHER ==
[2023-03-17 09:03] VITALS: BP 117/71; PULSE 104; RESP 16; TEMP 98.3; BMI 38.9
[2023-03-17] MEDS ORDERED: diazePAM 5 MG TABLET PO ONE (09:31)
[2023-03-17] MEDS ORDERED: IBUPROFEN 600 MG TABLET (FP) PO ONE ×2 (09:31→09:58)
[2023-03-17] MEDS ORDERED: diazePAM 2 MG TABLET ONE (09:59)
== END 2023-03-17 12:19 | disposition home or self-care (01) ==
LOC: JER 08:49
DX: M54.2 Cervicalgia (principal); M54.50 Low back pain, unspecified; M25.519 Pain in unspecified shoulder; R07.9 Chest pain, unspecified; R42 Dizziness and giddiness; R20.2 Paresthesia of skin; M62.838 Other muscle spasm
CPT/HCPCS: 93005; 93010; 99283-25

== ENCOUNTER 2023-09-08 17:25 | Emergency (ER) | payer OTHER ==
[2023-09-08 17:36] VITALS: BP 112/77; PULSE 101; RESP 18; TEMP 98.3; BMI 39.3
[2023-09-08] MEDS ORDERED: IBUPROFEN 600 MG TABLET (FP) PO ONE (19:04)
[2023-09-08] MEDS ORDERED: CYCLOBENZAPRINE HCL 10 MG TABLET (FP) ONE (19:04)
[2023-09-08] MEDS: CYCLOBENZAPRINE HCL 10 MG TABLET (FP) PO ONE (19:06)
[2023-09-08] MEDS: IBUPROFEN 600 MG TABLET (FP) PO ONE (19:06)
== END 2023-09-08 19:07 | disposition home or self-care (01) ==
LOC: JER 17:25 → JERFT 17:25
DX: S61.305A Unspecified open wound of left ring finger with damage to nail, initial encounter (principal); M25.511 Pain in right shoulder; Y04.0XXA Assault by unarmed brawl or fight, initial encounter
CPT/HCPCS: 73030-TC-RT-FY; 99283-25